=== PATIENT | male | born 1950 | race Caucasian/White ===

== ENCOUNTER → 2017-10-21 10:45 | Outpatient (REF) | payer OTHER, SELFPAY ==
[2017-10-21 13:40] LABS: Cholesterol 157 mg/dL (50-200); Glucose 93 mg/dL (70-100); HDL Cholesterol 44 mg/dL (40-60); LDL CHOLESTEROL 99 mg/dL (<100); Triglyceride 111 mg/dL (30-150)
[2017-10-24 09:58] LABS: PSA, Screening 3.5 ng/ml (0-4.5)
== END ==
LOC: NCHCN 10:45
PROVIDERS: PCP Nurse Practitioner; Visit Provider Nurse Practitioner
DX: Z00.00 Encounter for general adult medical examination without abnormal findings (principal); E78.70 Disorder of bile acid and cholesterol metabolism, unspecified; Z12.5 Encounter for screening for malignant neoplasm of prostate
CPT/HCPCS: 80061; 82947; 83721; 84153

== ENCOUNTER 2018-01-20 14:07 | Outpatient (REF) | payer OTHER, SELFPAY ==
[2018-01-20 21:43] LABS: HCT 46.5 % (40.0-50.0); HGB 15.7 g/dL (13.5-17.5); Mean Corp. HGB Concentration 33.8 g/dL (32.0-36.0); Mean Corpuscular Hemoglobin 31.9 pg (27.0-33.0); Mean Corpuscular Volume 94.5 fL (80-95); Mean Platelet Volume 11.6 fL (8.0-11.0); Platelet Count 280 x1000/uL (130-400); RBC 4.92 m/cumm (4.50-6.00); RBC Distribution Width 13.2 % (11.8-14.1); White Blood Cell Count 7.81 k/cumm (4.4-10.8)
[2018-01-20 22:24] LABS: Bilirubin Negative (Negative); Blood Trace-lysed (Negative); Clarity Clear; Glucose Negative (Negative); Ketones Negative (Negative); Leukocyte Esterase Negative (Negative); Nitrite Negative (Negative); Specific Gravity 1.015 (1.005-1.025); Urobilinogen 0.2 EU/dL (Up TO 0.2); pH 6.5 (5-8)
[2018-01-20 22:32] LABS: Bacteria Negative HPF (Negative); C-Reactive Protein 0.33 mg/dL (0.0-0.3); Epithelial Cells Many HPF (Negative); RBC Negative (0-2); WBC 0-2 HPF (0-5)
[2018-01-20 22:33] LABS: ALT 26 U/L (12-78); AST 25 U/L (15-37); Albumin 3.8 g/dL (3.4-5.0); Alkaline Phosphatase 76 U/L (46-116); Anion Gap 10.1 mmol/L (3-11); BUN 20 mg/dL (7-18); Bilirubin, Total 0.4 mg/dL (0.2-1.0); C & S Indicated? No/Sq. Contamination; CO2 24.9 mmol/L (21.0-32.0); CREATININE 0.94 mg/dL (0.70-1.30); Calcium 9.1 mg/dL (8.5-10.1); Casts Negative LPF (Negative); Chloride 102 mmol/L (98-107); Cholesterol 209 mg/dL (50-200); Crystals Few Calcium Oxalate HPF (Negative); Glucose 98 mg/dL (70-100); HDL Cholesterol 57 mg/dL (40-60); LDL CHOLESTEROL 144 mg/dL (<100); Mucus Negative (Negative); Potassium 4.2 mmol/L (3.5-5.1); Sodium 137 mmol/L (136-145); Total Protein 6.7 g/dL (6.4-8.2); Triglyceride 68 mg/dL (30-150)
[2018-01-20 22:34] LABS: ESR 9 MM/HR (1-20)
[2018-01-23 10:16] LABS: Hepatitis C Ab w Rflx HCV PCR Negative (NEGAT)
[2018-01-23 13:51] LABS: ANA Interpretation Negative (NEGAT)
[2018-01-24 12:36] LABS: Albumin 61.3 % (55.8-66.1); Total Protein 6.5 g/dl (6.3-8.2)
== END 2018-01-20 14:27 ==
LOC: NCHCN 14:07
PROVIDERS: PCP Nurse Practitioner; Visit Provider Internal Medicine
DX: T69.1XXD Chilblains, subsequent encounter (principal); Z11.59 Encounter for screening for other viral diseases
CPT/HCPCS: 80053; 80061; 83721; 85027; 85652; 86803; 81003; 81015; 84165; 86038; 86140; 86160

== ENCOUNTER 2018-09-26 12:06 | Outpatient (REF) | payer OTHER, SELFPAY ==
[2018-09-26 22:23] LABS: ALT 23 U/L (12-78); AST 18 U/L (15-37); Albumin 3.8 g/dL (3.4-5.0); Alkaline Phosphatase 85 U/L (46-116); Anion Gap 9.4 mmol/L (3-11); BUN 19 mg/dL (7-18); Bilirubin, Total 0.5 mg/dL (0.2-1.0); CO2 28.6 mmol/L (21.0-32.0); CREATININE 0.92 mg/dL (0.70-1.30); Calculated LDL 151 mg/dL; Chloride 105 mmol/L (98-107); Cholesterol 218 mg/dL (50-200); Glucose 92 mg/dL (70-100); HDL Cholesterol 51 mg/dL (40-60); Potassium 4.6 mmol/L (3.5-5.1); Sodium 143 mmol/L (136-145); Total Protein 6.7 g/dL (6.4-8.2); Triglyceride 81 mg/dL (30-150)
== END 2018-09-26 12:26 ==
LOC: NCHCN 12:06
PROVIDERS: PCP Nurse Practitioner; Visit Provider Specialist/Technologist Athletic Trainer
DX: R73.01 Impaired fasting glucose (principal); R23.8 Other skin changes; E78.89 Other lipoprotein metabolism disorders
CPT/HCPCS: 80053; 80061; 83721; 83036

== ENCOUNTER → 2018-12-14 09:22 | Outpatient (BNVA) | payer OTHER, SELFPAY | PROVIDERS: PCP Specialist/Technologist Athletic Trainer; Visit Provider Physical Therapy Assistant | DX: Z12.11 Encounter for screening for malignant neoplasm of colon (principal); Z86.010 Personal history of colon polyps; J44.9 Chronic obstructive pulmonary disease, unspecified; F17.210 Nicotine dependence, cigarettes, uncomplicated ==

== ENCOUNTER 2018-12-22 08:47 | Day surgery (SDC) | payer OTHER, SELFPAY ==
[2018-12-22 09:08] VITALS: BP 107/67; PULSE 89; RESP 16; TEMP 36; O2SAT 99
[2018-12-22] MEDS: Lactated Ringers 1,000 ML 80 ML IV (09:19)
--- NOTE | 2018-12-22 10:20 | W.PM.DSUDISC ---
Discharge Plan Disposition Patient Disposition: HOME Condition: Good Discharge Details Reason For Visit: Colonoscopy Attending Provider: Brooke Reaves Primary Care Provider: Steve Paul Home Meds and New Rx's Prescriptions: Continued ibuprofen 800 mg tablet 800 mg PO BID PRNRF: 0 sildenafil [Viagra] 50 mg tablet 50 mg PO DAILY PRNRF: 0 citalopram 20 mg tablet 20 mg PO DAILY RF: 0 sennosides [Senokot] 8.6 mg tablet 17.2 mg PO DAILY RF: 0 cholecalciferol (vitamin D3) 1,000 UNIT capsule 1,000 unit PO DAILY RF: 0 Symbicort 10.2 GM HFA aerosol inhaler 2 puff Inhalation BID RF: 0 Discharge Instructions Additional Instructions: Findings: Three polyps were removed. My office will contact you with biopsy results. Follow up: Plan for a colonoscopy in 3 years Please call if you develop: fevers >101.5 Nausea or Vomiting Abdominal pain that is not transient DAY SURGERY UNIT POST COLONOSCOPY INSTRUCTIONS 1. Because there will be medication in your system for the next 24 hours, you may feel a little sleepy. Your coordination will be affected. Therefore: a. Do not drive or operate dangerous equipment for 24 hours. b. Do not drink alcohol beverages for 24 hours (not even beer). c. Plan to go home and rest for the day. 2. Generally there are no restrictions on your activity after a day or so has gone by, but you may feel a bit fatigued for a few days. 3 After you arrive home you may have a light meal and return to a normal diet as you can tolerate it without feeling sick to your stomach. 4. After surgery, you may feel pain or discomfort. This should be only transient, but if it persists please contact your doctor. 5. If there are any questions regarding the findings of your procedure, please feel free to contact your doctor. 6. If you are unable to contact your doctor with a problem, contact the hospital at [phone]. 7. Continue all your regular medications unless directed otherwise. I understand the above instructions and have no questions. Signature of Patient or Responsible Adult Escort Date/Time Name of Responsible Adult Escort Signature of Nurse Date/Time Activity:: Activity as Tolerated Diet:: As Tolerated Discharge Orders Discharge Orders: Discharge Order (Routine); Ordered 12/22/18 Ordered By: Brooke Reaves DS: Diagnosis Discharge Diagnosis (1) Colon polyps: Status: Acute
--- NOTE | 2018-12-22 10:54 | BOWEL_PTH ---
PATIENT: Clement Nelson LOC: [facility] U#:[id number] AGE/SX: 68/M ROOM: RE12/22/[address]: Brooke Reaves MD : 1950 BED: DIS: 12/22/2018 SPEC #: [id number] RECD: 12/22/18 12:39 STATUS: BEN REQ #: [id number] CHANDU: 12/22/18 10:[address]: Brooke Reaves DEPT: Surgical Specimen RECD BY: Anayeli Escobar ENTERED: 12/22/18 12:41 SP TYPE: Bowel OTHR DR: Steve Paul Tissues: 1 - BIOPSY BOWEL 2 - BIOPSY BOWEL Procedures: GROSS AND MICRO LEVEL 4 Comments: [id number]
[2018-12-22 11:50] VITALS: BP 107/67; PULSE 62; RESP 16; TEMP 35.9; O2SAT 100
--- NOTE | 2018-12-25 10:15 | COLE_ITS ---
DATE OF PROCEDURE: December 22, 2018 PREOPERATIVE DIAGNOSIS: History of colon polyps. POSTOPERATIVE DIAGNOSIS: Colon polyps. PROCEDURE: Colonoscopy with polypectomy. SURGEON: Brooke Reaves M.D. ANESTHESIA: General. INDICATIONS: This is a 68-year-old man whose prior colonoscopy in 2009 showed polyps. He has no fam rene history of colon cancer and is asymptomatic. PROCEDURE: The patient was placed in the left Aviles position. Propofol was titrated to sedation. Di gital rectal examination revealed no abnormalities. The scope was advanced to the cecum without diff iculty. The ileocecal valve and appendiceal orifice were clearly identified. The scope was slowly w ithdrawn with no abnormalities seen within the ascending or transverse colons. In the descending the re was a slightly larger than 1 cm polyp that was removed with snare polypectomy and retrieved for pa thology. In the sigmoid region there was a larger polyp on a stalk. This was removed with snare danis ypectomy at the mid-portion of the stalk and needed to be dragged out with the scope to retrieve for pathology. A hemostatic clip was applied to the base of the stalk with good result. There had been good hemostasis and this was applied as a preventative measure. Of note, there had also been an sandro cent small polyp that was removed with snare polypectomy but not retrieved because the tissue was tan troyed during the process due to cautery effect. The rectum was normal, including on retroflex view. He tolerated the procedure well and was stable to recovery. A follow-up will be dependent on the p athology, but it is anticipated to be needed within three years. cc: Libertad Mena
== END 2018-12-22 12:25 | disposition home or self-care (01) ==
PROVIDERS: PCP Specialist/Technologist Athletic Trainer; Visit Provider Surgery
PROC: 0DJD8ZZ Inspection of Lower Intestinal Tract, Via Natural or Artificial Opening Endoscopic (ICD-10-PCS; CPT 45378; principal; 2018-12-22 10:30)
DX: Z12.11 Encounter for screening for malignant neoplasm of colon (principal); D12.4 Benign neoplasm of descending colon; D12.5 Benign neoplasm of sigmoid colon; Z86.010 Personal history of colon polyps; Z87.19 Personal history of other diseases of the digestive system; J44.9 Chronic obstructive pulmonary disease, unspecified
CPT/HCPCS: 45385; 88305

== ENCOUNTER 2019-02-13 12:57 | Outpatient (REF) | payer OTHER, SELFPAY ==
[2019-02-16 11:45] LABS: Lyme Ab w Rflx to Lyme Confirm Negative (Negative)
[2019-02-16 16:57] LABS: Anaplasma phagocytophilum Negative (Negative); B. miyamotoi PCR Negative (Negative); Babesia divergens/MO-1 Negative (Negative); Babesia duncani Negative (Negative); Babesia microti Negative (Negative); Ehrlichia chaffeensis Negative (Negative); Ehrlichia ewingii/canis Negative (Negative); Ehrlichia muris eauclairensis Negative (Negative)
== END 2019-02-13 13:17 ==
LOC: NCHCN 12:57
PROVIDERS: PCP Specialist/Technologist Athletic Trainer; Visit Provider Specialist/Technologist Athletic Trainer
DX: M79.10 Myalgia, unspecified site (principal)
CPT/HCPCS: 87798; 86618

== ENCOUNTER 2020-01-24 13:59 | Outpatient (REF) | payer OTHER, SELFPAY ==
[2020-01-24 21:07] LABS: Bilirubin Negative (Negative); Blood Small (Negative); Clarity Clear (Clear); Glucose Negative (Negative); Ketones Negative (Negative); Leukocyte Esterase Negative (Negative); Nitrite Negative (Negative); Specific Gravity 1.025 (1.005-1.025); Urobilinogen 0.2 EU/dL (Up TO 0.2)
[2020-01-24 21:14] LABS: Epithelial Cells Few HPF (Negative); RBC 0-2 HPF (0-2); WBC 0-2 HPF (0-5)
[2020-01-24 21:15] LABS: Bacteria Rare HPF (Negative); C & S Indicated? No; Casts Negative LPF (Negative); Crystals Negative HPF (Negative); Mucus Negative (Negative); Other Cells Few Transitional (Negative)
[2020-01-24 21:27] LABS: HCT 48.9 % (40.0-50.0); HGB 16.6 g/dL (13.5-17.5); MCH 31.7 pg (27.0-33.0); MCHC 33.9 % (32.0-36.0); MCV 93.5 fL (80-95); MPV 10.6 fL (8.0-11.0); Platelet Count 324 10^3/uL (130-400); RBC 5.23 10^6/uL (4.36-5.78); RDW 12.7 % (11.8-14.1); RDW-SD 43.6 fL; WBC 9.48 10^3/uL (4.4-10.8)
[2020-01-24 21:50] LABS: ALT 21 U/L (16-63); AST 21 U/L (15-37); Anion Gap 8.2 mmol/L (3-11); BUN 17 mg/dL (7-18); CO2 24.8 mmol/L (21.0-32.0); Calcium 8.5 mg/dL (8.5-10.1); Calculated LDL 169 mg/dL (<100); Chloride 106 mmol/L (98-107); Cholesterol 235 mg/dL (<200); Glucose 100 mg/dL (74-106); HDL Cholesterol 46 mg/dL (40-60); Potassium 4.5 mmol/L (3.5-5.1); Sodium 139 mmol/L (136-145); Triglyceride 101 mg/dL (<150)
[2020-01-24 22:10] LABS: Hemoglobin A1C 5.8 % (<5.7)
[2020-01-29 13:22] LABS: PSA, Screening 3.5 ng/mL (0-6.5)
== END 2020-01-24 14:19 ==
LOC: NCHCN 13:59
PROVIDERS: PCP Specialist/Technologist Athletic Trainer; Visit Provider Nurse Practitioner Family
DX: R31.9 Hematuria, unspecified (principal); Z00.00 Encounter for general adult medical examination without abnormal findings; R73.03 Prediabetes; Z12.5 Encounter for screening for malignant neoplasm of prostate; E78.70 Disorder of bile acid and cholesterol metabolism, unspecified
CPT/HCPCS: 80048; 80061; 84153; 85027; 81003; 81015; 83036; 84450; 84460

== ENCOUNTER 2021-01-28 15:13 | Outpatient (REF) | payer MEDICARE, OTHER, SELFPAY ==
[2021-01-28 21:29] LABS: Clarity Clear (Clear)
[2021-01-28 21:30] LABS: Bilirubin Negative (Negative); Blood Moderate (Negative); Glucose Negative (Negative); Ketones Negative (Negative); Leukocyte Esterase Negative (Negative); Nitrite Negative (Negative); Specific Gravity >= 1.030 (1.005-1.025); Urobilinogen 0.2 EU/dL (Up TO 0.2); WBC Negative HPF (0-5); pH 6.5 (5-8)
[2021-01-28 21:31] LABS: Bacteria Rare HPF (Negative); C & S Indicated? No; Casts Negative LPF (Negative); Crystals Negative HPF (Negative); Epithelial Cells Few HPF (Negative); Mucus Negative (Negative)
[2021-01-28 21:37] LABS: HCT 48.5 % (40.0-50.0); HGB 15.9 g/dL (13.5-17.5); MCH 30.4 pg (27.0-33.0); MCHC 32.8 % (32.0-36.0); MCV 92.7 fL (80-95); MPV 10.8 fL (8.0-11.0); Platelet Count 331 10^3/uL (130-400); RBC 5.23 10^6/uL (4.36-5.78); RDW 13.2 % (11.8-14.1); RDW-SD 44.7 fL; WBC 10.41 10^3/uL (4.4-10.8)
[2021-01-29 00:44] LABS: Hemoglobin A1C 6.2 % (<5.7)
[2021-01-29 08:21] LABS: Calcium 8.9 mg/dL (8.5-10.1)
[2021-01-29 08:22] LABS: ALT 27 U/L (16-63); AST 24 U/L (15-37); Anion Gap 12.3 mmol/L (3-11); BUN 17 mg/dL (7-18); CO2 24.7 mmol/L (21.0-32.0); Calculated LDL 117 mg/dL (<100); Chloride 104 mmol/L (98-107); Cholesterol 185 mg/dL (<200); Glucose 81 mg/dL (74-106); HDL Cholesterol 50 mg/dL (40-60); Potassium 4.4 mmol/L (3.5-5.1); Sodium 141 mmol/L (136-145); Triglyceride 92 mg/dL (<150)
[2021-01-29 18:28] LABS: PSA, Diagnostic 6.1 ng/mL (0.0-6.5)
== END 2021-01-28 15:14 | disposition home or self-care (01) ==
LOC: NCHCN 15:13
PROVIDERS: PCP Nurse Practitioner Family; Visit Provider Nurse Practitioner Family
DX: R31.9 Hematuria, unspecified (principal); E78.00 Pure hypercholesterolemia, unspecified; R03.0 Elevated blood-pressure reading, without diagnosis of hypertension; R73.03 Prediabetes; Z12.5 Encounter for screening for malignant neoplasm of prostate
CPT/HCPCS: 80048; 80061; 85027; 81003; 81015; 83036; 84153; 84450; 84460

== ENCOUNTER 2021-02-26 02:15 | Outpatient (CLI) | payer MEDICARE, OTHER, SELFPAY ==
--- NOTE | 2021-02-26 | DI.CTLCSR_ITS ---
Exam(s) CT CHEST LUNG CANCER SCREEN EXAM: CT CHEST LUNG CANCER SCREEN CLINICAL HISTORY: CIGARETTE SMOKER F17.210,screening for lung ca. TECHNIQUE: Imaging Protocol: Low Dose Technique CONTRAST MATERIAL: None COMPARISON: No exams were available for comparison FINDINGS: CHEST: LUNGS: In the right lung there is a tiny 1 millimeter nodule located laterally in the right upper lob e (series 2/image 45). There is a subpleural tiny 2 millimeter nodule in the anterior segment of the right upper lobe (series 2/image 53). There is a 6 millimeter nodule at the junction of the right u pper and right middle lobes (series 2/image 83) which is probably a pseudo nodule, given its location . There is a 5 millimeter nodular density in the right middle lobe (series 2/image 101). There are no significant focal findings in the basal segments of the right lower lobe. There is a 6 millimeter nodule in the superior segment of the right lower lobe which has the appearance of a granuloma. No pleural effusion. In the opposite-left lung there is an 11 by 8 millimeter nodular density subpleural location left low er lobe (series 2/image 71). There are no other significant focal left lung findings. No pleural ef fusion. No significant focal findings in the trachea and mainstem bronchi. MEDIASTINUM: There is no obvious hilar nor mediastinal adenopathy. CARDIAC: Heart size is normal. There is no pericardial effusion.Caliber of the thoracic aorta is wit hin normal limits. OTHER: OSSEOUS: No significant osseous lesions.. IMPRESSION: 1. Bilateral lung findings as described above. The most significant finding is a subpleural 11 x 8 m illimeter nodular density in the left lower lobe. Recommend repeat CT scan in 3 months. 2. No pleural effusions. No intrathoracic adenopathy. 3. Lung RADS Cat 4A - Suspicious: Findings for which additional diagnostic testing and/or [facility] recommended Lung-RADS 1.0 CATEGORIES: Category 0 - Prior chest CT exam(s) being located for comparison. Category 1 - Annual screening in 12 months. No nodules or definitely benign nodules. Category 2 - Annual screening in 12 months. Benign appearance. Nodules with low likelihood of becomin g active cancer. Category 3 - 6-month follow-up. Probably benign. Short-term follow-up suggested. Nodules with low lik elihood of becoming active cancer. Category 4A - 3-month follow-up and CT/PET if >8 mm in size. Suspicious finding. Findings which requi re additional testing. Category 4B - Findings which require additional testing and tissue sampling. Modifier S- Potentially clinically significant findings (non lung cancer) RADIATION DOSE DELIVERED: 85.1mGy.cm Total DLP 1.84mGy CTDIvol DATA REPOSITORY: All CT scans at this facility are submitted to the National Radiology Data Registry (NRDR) Dose Index Registry (DIR) with the [employer] (ACR). RADIATION OPTIMIZATION: All CT scans at this facility use at least one of these dose optimization te chniques: automated exposure control; mA and/or kV adjustment per patient size (includes targeted exa ms where dose is matched to clinical indication); or iterative reconstruction.
== END 2021-02-26 02:35 ==
PROVIDERS: PCP Nurse Practitioner Family; Visit Provider Nurse Practitioner Family
DX: Z12.2 Encounter for screening for malignant neoplasm of respiratory organs (principal); F17.210 Nicotine dependence, cigarettes, uncomplicated; R91.8 Other nonspecific abnormal finding of lung field
CPT/HCPCS: 71271

== ENCOUNTER 2021-11-26 10:02 | Outpatient (REF) | payer MEDICARE, OTHER, SELFPAY ==
[2021-11-28 12:09] LABS: COVID-19 RT-PCR UVMMC Result Negative (Negative)
== END 2021-11-26 10:03 | disposition home or self-care (01) ==
LOC: NCHCN 10:02
PROVIDERS: PCP Nurse Practitioner Family; Visit Provider Nurse Practitioner Family
DX: U07.1 COVID-19 (principal)
CPT/HCPCS: U0003

== ENCOUNTER → 2021-12-14 02:02 | Outpatient (CLI) | payer MEDICARE, OTHER, SELFPAY ==
--- NOTE | 2021-12-14 12:30 | DI.RAD_ITS ---
Exam(s) XR HIP PELVIS ADULT BL EXAM: XR HIP PELVIS ADULT BL CLINICAL HISTORY: HIP PAIN, M25.559. TECHNIQUE: 2D digital imaging was performed. Three views. COMPARISON: No exams were available for comparison FINDINGS: BONES: No acute fracture is present. No bony destructive lesion is seen. JOINTS: No dislocation present. Mild bilateral acetabular spurring. Mild degenerative changes at the SI joints. SOFT TISSUE: Normal. IMPRESSION: Mild degenerative changes. DATA REPOSITORY: RADIATION DOSE DELIVERED:
== END ==
PROVIDERS: PCP Nurse Practitioner Family; Visit Provider Nurse Practitioner Family
DX: M16.0 Bilateral primary osteoarthritis of hip (principal)
CPT/HCPCS: 73521

== ENCOUNTER → 2021-12-30 01:45 | Outpatient (CLI) | payer MEDICARE, OTHER, SELFPAY ==
--- NOTE | 2021-12-30 14:30 | DI.CT_ITS ---
Exam(s) CT CHEST WO EXAM: CT CHEST WO CLINICAL HISTORY: PULMONARY NODULE, R91.1 TECHNIQUE: CT examination of the chest was performed utilizing low-dose lung cancer screening protoc . COMPARISON: CT CT CHEST LUNG CANCER SCREEN from 02/26/2021 FINDINGS: Images obtained through the upper abdomen show unremarkable appearance of visualized portions of the liver and spleen. Note is made of an 18 millimeter in diameter right adrenal nodule, this shows att enuation around 0 Hounsfield units consistent with an adenoma. No follow-up recommended. There is no mediastinal or hilar adenopathy. Mediastinal vascular structures appear intact by noncon trast criteria. Tracheobronchial tree appears intact. No pleural effusion or pleural-based mass. There were pulmonary nodules seen on examination of February 2021. The largest of these was a subple ural left lower lobe nodule measuring 10 millimeters mean diameter, this is no longer visible. A 6 m illimeter right lower lobe nodule is the largest remaining nodule and remains stable since the prior examination. No other suspicious findings or new nodularity seen. IMPRESSION: Lung RADS Cat 2 - Benign Appearance / Behavior: Nodules with a very low likelihood of becoming a clin ically active cancer due to size or lack of growth Continue annual screening with LDCT in 12 months. Lung-RADS 1.0 CATEGORIES: Category 0 - Prior chest CT exam(s) being located for comparison. Category 1 - Annual screening in 12 months. No nodules or definitely benign nodules. Category 2 - Annual screening in 12 months. Benign appearance. Nodules with low likelihood of becomin g active cancer. Category 3 - 6-month follow-up. Probably benign. Short-term follow-up suggested. Nodules with low lik elihood of becoming active cancer. Category 4A - 3-month follow-up and CT/PET if >8 mm in size. Suspicious finding. Findings which requi re additional testing. Category 4B - Findings which require additional testing and tissue sampling. Suspicious finding. Category 4X - Category 3 or 4 nodules with additional features or imaging findings that increases the suspicion of malignancy. Modifier S- Potentially clinically significant finding. (Non lung cancer) RADIATION DOSE DELIVERED: Total DLP CTDIvol Total DLP !Error CTDIvol DATA REPOSITORY: All CT scans at this facility are submitted to the National Radiology Data Registry (NRDR) Dose Index Registry (DIR) with the [employer] (ACR). RADIATION OPTIMIZATION: All CT scans at this facility use at least one of these dose optimization te chniques: automated exposure control; mA and/or kV adjustment per patient size (includes targeted exa ms where dose is matched to clinical indication); or iterative reconstruction.
== END ==
PROVIDERS: PCP Nurse Practitioner Family; Visit Provider Nurse Practitioner Family
DX: R91.1 Solitary pulmonary nodule (principal)
CPT/HCPCS: 71250

== ENCOUNTER 2022-02-22 15:14 | Outpatient (REF) | payer MEDICARE, OTHER, SELFPAY ==
[2022-02-22 15:03] LABS: Calculated LDL 184 mg/dL (<100); Cholesterol 252 mg/dL (<200); HDL Cholesterol 49 mg/dL (40-60); Triglyceride 97 mg/dL (<150)
[2022-02-22 15:42] LABS: Hemoglobin A1C 5.9 % (<5.7)
[2022-02-24 09:42] LABS: DHEA Sulfate 86 ug/dL (See Note)
== END 2022-02-22 15:15 | disposition home or self-care (01) ==
LOC: NCHCN 15:14
PROVIDERS: PCP Nurse Practitioner Family; Visit Provider Internal Medicine
DX: E78.70 Disorder of bile acid and cholesterol metabolism, unspecified (principal); R73.03 Prediabetes; I10 Essential (primary) hypertension; M79.671 Pain in right foot
CPT/HCPCS: 80061; 82627; 82088; 83036

== ENCOUNTER 2022-08-17 15:09 | Outpatient (REF) | payer MEDICARE, OTHER, SELFPAY ==
[2022-08-17 22:00] LABS: HCT 48.1 % (40.0-50.0); HGB 16.3 g/dL (13.5-17.5); MCH 31.7 pg (27.0-33.0); MCHC 33.9 % (32.0-36.0); MCV 94 fL (80-95); MPV 10.6 fL (8.0-11.0); Platelet Count 319 10^3/uL (130-400); RBC 5.14 10^6/uL (4.36-5.78); RDW 13.6 % (11.8-14.1); RDW-SD 47.6 fL; WBC 8.85 10^3/uL (4.4-10.8)
[2022-08-18 00:04] LABS: ALT 21 U/L (16-63); AST 21 U/L (15-37); Albumin 3.7 g/dL (3.4-5.0); Alkaline Phosphatase 79 U/L (46-116); Anion Gap 8.6 mmol/L (3-11); BUN 17 mg/dL (7-18); Bilirubin, Total 0.5 mg/dL (0.2-1.0); CO2 26.4 mmol/L (21.0-32.0); CREATININE 0.9 mg/dL (0.70-1.30); Calcium 8.8 mg/dL (8.5-10.1); Chloride 104 mmol/L (98-107); Estimated GFR 90.74 (mL/min/1.73m2); Glucose 92 mg/dL (74-106); Potassium 4.6 mmol/L (3.5-5.1); Sodium 139 mmol/L (136-145); Total Protein 6.9 g/dL (6.4-8.2)
[2022-08-18 18:29] LABS: PSA, Screening 6.9 ng/mL (<=6.5)
== END 2022-08-17 15:10 | disposition home or self-care (01) ==
LOC: NCHCN 15:09
PROVIDERS: PCP Nurse Practitioner Family; Visit Provider Nurse Practitioner Family
DX: I10 Essential (primary) hypertension (principal); R73.03 Prediabetes; N40.0 Benign prostatic hyperplasia without lower urinary tract symptoms; Z12.5 Encounter for screening for malignant neoplasm of prostate; E78.00 Pure hypercholesterolemia, unspecified
CPT/HCPCS: 80053; 84153; 85027

== ENCOUNTER 2022-09-17 00:22 | Outpatient (CLI) | payer MEDICARE, OTHER, SELFPAY ==
[2022-09-17] MEDS: Normal Saline - Diluent 50 ML VIAL IJ (09:33)
[2022-09-17] MEDS: Normal Saline Flush 10 ML SYR IJ (09:33)
--- NOTE | 2022-09-17 09:33 | DI.CTLCSR_ITS ---
Exam(s) CT CHEST LUNG CANCER SCREEN EXAM: CT CHEST LUNG CANCER SCREEN CLINICAL HISTORY: CIGARETTE SMOKER, F17.210 TECHNIQUE: Imaging Protocol: Axial computed tomography images with coronal and sagittal reformatted images were created and reviewed. Low dose screening protocol. COMPARISON: CT CT CHEST LUNG CANCER SCREEN from 02/26/[address] CHEST WO from 12/30/2021 FINDINGS: Tracheobronchial tree: No bronchiectasis or mucus plugging.. Mediastinum and Eliz: No dominant adenopathy or fluid collection. Pulmonary parenchyma: No consolidation or dominant measurable mass. Mild emphysematous changes. Bleb right lung apex. Interstitial changes. Lung Nodules: 6 millimeter calcified granuloma right lower lobe. Two tiny perifissural nodules on th e right. Pleura: No effusion. No pneumothorax. Heart: The heart is not dilated. Mild coronary artery calcifications are seen. Aorta: Thoracic aorta non-dilated. Upper abdomen: Unremarkable. Bones: Degenerative disc changes and mild scoliosis. Soft Tissues: Stable small low-attenuation right adrenal adenoma. No follow-up recommended. IMPRESSION: No suspicious pulmonary nodules. Lung RADS Cat 2 - Benign Appearance / Behavior: Nodules with a very low likelihood of becoming a clin ically active cancer due to size or lack of growth Lung-RADS 1.0 CATEGORIES: Category 0 - Prior chest CT exam(s) being located for comparison. Category 1 - Annual screening in 12 months. No nodules or definitely benign nodules. Category 2 - Annual screening in 12 months. Benign appearance. Nodules with low likelihood of becomin g active cancer. Category 3 - 6-month follow-up. Probably benign. Short-term follow-up suggested. Nodules with low lik elihood of becoming active cancer. Category 4A - 3-month follow-up and CT/PET if >8 mm in size. Suspicious finding. Findings which requi re additional testing. Category 4B - Findings which require additional testing and tissue sampling. Category 4X - Category 3 or 4 nodules with additional features or imaging findings that increases the suspicion of malignancy. Modifier S- Potentially clinically significant findings (non lung cancer) RADIATION DOSE DELIVERED: 85.1mGy.cm Total DLP DATA REPOSITORY: All CT scans at this facility are submitted to the National Radiology Data Registry (NRDR) Dose Index Registry (DIR) with the [employer] (ACR). RADIATION OPTIMIZATION: All CT scans at this facility use at least one of these dose optimization te ritu: automated exposure control; mA and/or kV adjustment per patient size (includes targeted exa ms where dose is matched to clinical indication); or iterative reconstruction.
[2022-09-17] MEDS: Omnipaque 350 MG/ML 500 ML BTL-Imaging package 100 ML IJ (09:34)
--- NOTE | 2022-09-17 09:48 | DI.CT_ITS ---
Exam(s) CT ABDOMEN WO/W EXAM: CT ABDOMEN WO/W CLINICAL HISTORY: ADRENAL NODULE, E27.8. TECHNIQUE: Imaging Protocol: Axial computed tomography images with coronal and sagittal reformatted images were created and reviewed CONTRAST MATERIAL: Intravenous: Omnipaque 350 Contrast volume:structured data in ml Contrast route:I V - Oral: no COMPARISON: CT CT CHEST LUNG CANCER SCREEN from 02/26/[address] CHEST WO from 12/30/2021 FINDINGS: ABDOMEN: Lung Bases: Normal where visualized. Liver: Normal density. No measurable mass. Gallbladder and biliary tract: No radiodense calculus or dilation. Pancreas: Normal density, no abnormal calcifications or inflammatory process. Spleen: Normal. Kidneys: Normal size, contour and axis. No radiodense stones or obstructive uropathy. No masses seen. Adrenal glands: Stable appearance of 18 millimeter water density right adrenal nodule since 2020. Ho mogeneous mild enhancement with washout characteristics consistent with an adenoma. No follow-up is recommended. Abdominal Aorta: Abdominal portion non-dilated. Atherosclerotic changes. Lymph nodes: Within normal limits. Bones: Degenerative changes. IMPRESSION: Stable small right adrenal nodule with appearance consistent with an adenoma. No follow-up recommen ded. RADIATION DOSE DELIVERED: 1,449.79mGy.cm Total DLP DATA REPOSITORY: All CT scans at this facility are submitted to the National Radiology Data Registry (NRDR) Dose Index Registry (DIR) with the [employer] (ACR). RADIATION OPTIMIZATION: All CT scans at this facility use at least one of these dose optimization te chniques: automated exposure control; mA and/or kV adjustment per patient size (includes targeted exa ms where dose is matched to clinical indication); or iterative reconstruction.
== END 2022-09-17 00:42 ==
LOC: DI 00:22
PROVIDERS: PCP Nurse Practitioner Family; Visit Provider Nurse Practitioner Family
DX: F17.210 Nicotine dependence, cigarettes, uncomplicated (principal); Z13.820 Encounter for screening for osteoporosis; E27.8 Other specified disorders of adrenal gland
CPT/HCPCS: 71271; 74170

== ENCOUNTER → 2022-09-23 11:33 | Outpatient (BNVA) | payer MEDICARE, OTHER, SELFPAY | PROVIDERS: PCP Nurse Practitioner Family; Referring Provider Nurse Practitioner Family; Visit Provider Physical Therapy Assistant | DX: Z12.11 Encounter for screening for malignant neoplasm of colon (principal); Z86.010 Personal history of colon polyps ==

== ENCOUNTER 2022-10-07 10:12 | Day surgery (SDC) | payer MEDICARE, OTHER, SELFPAY ==
--- NOTE | 2022-10-06 19:03 | W.PM.DSUDISC ---
Date of service: 10/07/22 Time of Service: 11:43 Discharge Plan Disposition Patient Disposition: Home Condition: Good Discharge Details Reason For Visit: Screening colonoscopy Attending Provider: Franky Abraham Primary Care Provider: Juany Amaya Home Meds and New Rx's Prescriptions: Continued ibuprofen 800 mg tablet 800 mg PO BID PRN celecoxib [Celebrex] 200 mg capsule 200 mg PO BID Patient Comments: no longer taking this medication multivitamin Tablet 1 tab PO DAILY Patient Comments: pt states he no longer takes this acetaminophen 500 mg capsule See Rx Instructions PO .COMPLEX PRN Rx Instructions: orally PRN; 1-2 tabs Q8hrs prn pain. MAX 6 tabs daily. sildenafil [Viagra] 50 mg tablet 50 mg PO DAILY PRN clotrimazole-betamethasone 1-0.05 % cream 1 applic topical BID budesonide-formoterol [Symbicort] 10.2 GM HFA aerosol inhaler 2 puff Inhalation BID Discontinued bisacodyl [Dulcolax (bisacodyl)] 5 mg tablet,delayed release (DR/EC) 5 mg PO ONCE Qty: 4 0RF Rx Instructions: Take per colonoscopy instructions provided by ordering providers office polyethylene glycol 3350 17 gram/dose powder 17 g PO ONCE Qty: 238 0RF Rx Instructions: Take per colonoscopy instructions provided by ordering providers office Discharge Instructions Additional Instructions: Miles, we were able to complete your colonoscopy today without any difficulty. The quality of your preparation was excellent. I did find 3 small polyps in your rectum. I removed these completely. I will be in touch when I have the pathology report describing the nature of the polyps with my final recommendations. 1. If tolerated, consume a soft, low fiber diet for 1-2 days. 2[address] Do not drive, drink alcohol, operate machinery, make critical decisions, or do activities that require coordination or balance for 24 hours. 3. Because air was put into your colon during the procedure, expelling air from your rectum (passing gas or farting) is normal. 4. You may not have a bowel movement for 1-3 days because of the colonoscopy prep. This is normal. 5. Go directly to the emergency room if you notice any of the following: Develop chills (warm to touch), or if you have a thermometer and your temperature is above 101 Difficulty breathing or difficultly swallowing Persistent vomiting Severe abdominal pain, other than gas cramps Severe chest pain Black, tarry stools Any bleeding ? exceeding one tablespoon 6. Call your physician if the site where your intravenous was started becomes red, swollen, painful, and warm to touch. 7. Your physician has reviewed your pre-procedure medications. Please continue to take those medications as previously ordered. You will be given specific information/education regarding any changes to your medications before leaving. Activity:: Activity as Tolerated Diet:: As Tolerated Discharge Orders Discharge Orders: Discharge Order (Routine); Ordered 10/06/22 Ordered By: Franky Abraham DS: Diagnosis Discharge Diagnosis (1) Screening for colon cancer: Status: Acute Asessment and Plan: Rectal polyps; follow-up on pathology results
--- NOTE | 2022-10-06 19:27 | W.COLOREPORT ---
Date of service: 10/07/22 Time of Service: 11:45 Colonoscopy Report Date of procedure: 10/07/22 Pre-op diagnosis general: Screening colonoscopy Post-op diagnosis procedure note: other (Rectal polyps) Procedure: Colonoscopy with polypectomy Surgeon: Franky Abraham Anesthesia Type: General:No Airway Estimated blood loss (mL): 10 Pathology: other (Rectal polyps) Complications: None Disposition: same day Indications: Clement is a 72 year old male with a history of adenomatous polyps. he is here for his next screening colonoscopy Prep: Miralax/Dulcolax Procedure Start Time: 11:08 Procedure End Time: 11:25 Retraction Time: 13 Findings: Rectal polyps Procedure Description: After the induction of monitored anesthetic care, and with the patient in left lateral decubitus position, I began by performing an external anorectal exam.? Perineum and skin were normal, as was the anal verge.? There was no evidence of external hemorrhoids.? Next, I performed a digital rectal exam.? I did not appreciate any abnormal findings.? Next, I advanced a colonoscope into the rectal vault.? I performed retroflexion.? In the distal rectum are 3 small polyps. The largest was less than 0.5 cm. I removed these all with cold forceps polypectomy. There was minimal bleeding..? Using insufflation, I then advanced the colonoscope beyond the rectal folds and into the sigmoid colon before advancing towards the cecum.? The quality of the prep was excellent.? The scope was noted to be in the cecum by identification of the ileocecal valve and appendiceal orifice.? I then began withdrawing the colonoscope using repeated irrigation as necessary for full evaluation of the colonic mucosa. ?Once the scope was withdrawn to the level of the rectum, great care was taken to examine portions of the rectal folds.? Finally, the scope was withdrawn and the patient was brought to the same-day surgery recovery unit as the anesthetic wore off. ?The findings and instructions were shared with the patient prior to discharge.
--- NOTE | 2022-10-07 10:33 | W.ANESPRE ---
General Info Date of Service Date Performed: 10/07/22 Height: 5 ft 8 in Weight: 86.636 kg Body Mass Index (BMI): 29.0 Surgical Procedure: Operation Date: 10/07/22 10:35 Proposed Procedure Side Surgeon cristobal Abraham MD Meds Allergies and Home Medications Allergies Allergy/AdvReac Type Severity Reaction Status Date / Time No Known Allergies Allergy Verified 10/07/22 10:35 Home Medication Medication Instructions Recorded budesonide-formoterol HFA 160 2 puff inhalation BID 10/25/17 mcg-4.5 mcg/actuation aerosol inhaler (Symbicort) ibuprofen 800 mg tablet 800 mg PO BID PRN 01/23/18 sildenafil 50 mg tablet (Viagra) 50 mg PO DAILY PRN 10/10/18 clotrimazole-betamethasone 1 1 applic topical BID 12/10/20 %-0.05 % topical cream acetaminophen 500 mg capsule See Rx Instructions PO .COMPLEX PRN 12/20/21 celecoxib 200 mg capsule (Celebrex) 200 mg PO BID 12/20/21 multivitamin 1 tab PO DAILY 12/20/21 Current Visit Medications: Current Medications Generic Name Dose Route Start Last Admin Trade Name Freq PRN Reason Stop Dose Admin Hyoscyamine Sulfate 0.125 mg 10/06/22 19:28 Hyoscyamine 0.125 Mg Sl/Oral/Chew SL 11/05/22 19:27 DIRECTED PRN Ringer's Solution 1,000 mls @ 80 mls/hr 10/07/22 06:00 IV 11/05/22 23:59 INFUSION [facility] IV Miscellaneous Supplies 1 each 10/07/22 06:00 Iv Access IV 11/05/22 23:59 DIRECTED [facility] Ondansetron HCl 4 mg 10/06/22 19:28 Ondansetron 4 Mg/2 Ml Vial IVP 11/05/22 19:27 Q4H PRN PRN Nausea / Vomiting Sodium Chloride 0 ml 10/07/22 06:00 Normal Saline Flush 10 Ml Syr IV 11/05/22 23:59 PRN PRN Sodium Chloride 0 ml 10/07/22 06:00 Normal Saline 10 Ml Vial IJ 11/05/22 23:59 DIRECTED PRN Sterile Water 0 ml 10/07/22 06:00 Water,Injection,Sterile 10 Ml Vial IJ 11/05/22 23:59 DIRECTED PRN PFSH Active Problems Active Problems: Problem Status Onset Code Screening for colon cancer Z12.11 Myalgia M79.10 Bruit R09.89 Pulmonary nodule R91.1 Abscess of toe, right L02.611 Adrenal nodule E27.8 Pain, foot M79.673 Corns and callosities L84 Nail dystrophy L60.3 Throat discomfort R07.0 Tongue, fissured K14.5 Globus sensation R09.89 Tongue lesion K14.8 Colon polyps K63.5 Anxiety and depression F41.9, F32.9 Chilblains T69.1XXA Cervical lymphadenopathy R59.0 BPH (benign prostatic hyperplasia) N40.0 Medical History Medical History Chronic back pain COPD (chronic obstructive pulmonary disease) [place] of toe Easy bruising Elevated blood pressure reading in office without diagnosis of hypertension Foot callus Hematuria Hematuria, microscopic High cholesterol Hip pain Hx of kidney disease Impaired fasting glucose Prediabetes Smoker Surgical History Surgical History History of arthroscopic knee surgery History of thumb surgery partial left thumb amputation S/P colonoscopy with polypectomy 12/22/18 Tobacco Smoking/Tobacco Use Status: Current every day Tobacco Type: cigarettes Alcohol Alcohol Intake: current Alcohol intake frequency: a few times a week Alcohol type: beer Substance Use Substance use: Daily Substance use type: marijuana Details: Vapes. Vital Signs and Lab Results Vital Signs Comment Vital Signs Comment:: Temp Pulse Resp BP Pulse Ox 36.4 C L 91 H 16 158/93 H 98 10/07/22 10:38 10/07/22 10:38 10/07/22 10:38 10/07/22 10:38 10/07/22 10:38 Lab Results Blood Type / Crossmatch: No Data to Display Complete Blood Count: No Data to Display Complete Metabolic Panel: No Data to Display Liver Function Panel: No Data to Display Coagulation Panel: No Data to Display Cardiac Panel: No Data to Display Arterial Blood Gas: No Data to Display Venous Blood Gas: No Data to Display Pancreas Panel: No Data to Display Thyroid Panel: No Data to Display Infectious Disease: No Data to Display Blood Cultures: No Data to Display Toxicology Panel: No Data to Display Anesthesia Assessment and Plan Anesthesia History Personal History: No History of Anesthesia Complications Family History: No Family History of Anesthesia Complications Exercise Tolerance Exercise Tolerance: Metabolic Equivalents>4 Pertinent Negatives Pertinent Negatives: No Symptoms of GERD and No Major Cardiovascular Symptoms or Complaints Cardiac & Pulmonary Exam Cardiac Exam: Normal S1/S2 Heart Sounds Pulmonary Exam: Clear Bilateral Breath Sounds Implantable Cardiac Device Does patient have a Pacemaker or an ICD?: No Airway Exam Known Difficult Airway: No Mallampati Class: 1 Mouth Opening: Normal (> 3cm) Thyromental Distance: Greater than 3 cm Neck Range of Motion: Full ROM Neck Circumference: Normal Teeth Condition: Normal Dentition ASA Classification ASA Score: ASA 2 Emergency Case?: No NPO Status NPO Status: NPO Clears >2 hours, Solids >8 hours Anesthesia Plan Resuscitation Status: Full Code Anesthesia Technique: General Anesthesia Airway Planned: Natural Airway Monitors Used: Standard Monitors
[2022-10-07 10:35] VITALS: BMI 29.0
[2022-10-07 10:38] VITALS: BP 158/93; PULSE 91; RESP 16; TEMP 36.4; O2SAT 98
[2022-10-07] MEDS: Lactated Ringers 1,000 ML 80 ML IV (10:40)
--- NOTE | 2022-10-07 11:10 | BOWEL_PTH ---
PATIENT: Clement Nelson LOC: [facility] U#:[id number] AGE/SX: 72/M ROOM: RE10/07/[address]: Franky Abraham MD : 1950 BED: DIS: 10/07/2022 SPEC #: [id number] RECD: 10/07/22 12:09 STATUS: BEN REQ #: [id number] CHANDU: 10/07/22 11:[address]: Franky Abraham DEPT: Surgical Specimen RECD BY: Anayeli Escobar ENTERED: 10/07/22 12:10 SP TYPE: Bowel OTHR DR: Juany Amaya Tissues: 1 - BIOPSY BOWEL Procedures: GROSS AND MICRO LEVEL 4 Comments: [id number]
[2022-10-07 11:29] VITALS: BP 109/66; PULSE 85; RESP 16; TEMP 36.2; O2SAT 95
[2022-10-07 11:49] VITALS: BP 126/76; PULSE 73; RESP 16; TEMP 36.2; O2SAT 98
--- NOTE | 2022-10-07 12:27 | W.ANESPOSTOP ---
Postoperative Evaluation Date, Time and Location Date Performed: 10/07/22 Time Performed: 11:40 Patient Location: Day Surgery Unit Vital Signs Most Recent Imported Vital Signs: Most Recent Vital Signs Temp Pulse Resp BP Pulse Ox 36.2 C L 85 16 109/66 95 10/07/22 11:29 10/07/22 11:29 10/07/22 11:29 10/07/22 11:29 10/07/22 11:29 Assessment Mental Status: Awake (Alert & Oriented to Patient Baseline) Airway and Respiratory Function: Patent airway with normal (patient baseline) respiratory exam Cardiovascular Function: Hemodynamically Stable Hydration Status: Adequately Hydrated Nausea & Vomiting: No Nausea or Vomiting Pain: Pt. Denies Any Pain Peripheral Nerve Block: Patient did not receive a nerve block
== END 2022-10-07 12:30 | disposition home or self-care (01) ==
LOC: SUR 10:12
PROVIDERS: PCP Nurse Practitioner Family; Visit Provider Surgery
PROC: 0DJD8ZZ Inspection of Lower Intestinal Tract, Via Natural or Artificial Opening Endoscopic (ICD-10-PCS; CPT 45378; principal; 2022-10-07 10:30)
DX: Z12.11 Encounter for screening for malignant neoplasm of colon (principal); K62.1 Rectal polyp; Z86.010 Personal history of colon polyps; J44.9 Chronic obstructive pulmonary disease, unspecified; E78.00 Pure hypercholesterolemia, unspecified; R73.03 Prediabetes
CPT/HCPCS: 45380; 88305

== ENCOUNTER 2023-02-15 18:46 | Outpatient (REF) | payer MEDICARE, OTHER, SELFPAY ==
[2023-02-16 20:16] LABS: PSA, Diagnostic 6.7 ng/mL (<=6.5)
== END 2023-02-15 18:47 | disposition home or self-care (01) ==
LOC: NCHCN 18:46
PROVIDERS: PCP Nurse Practitioner Family; Visit Provider Nurse Practitioner Family
DX: R97.20 Elevated prostate specific antigen [PSA] (principal)
CPT/HCPCS: 84153

== ENCOUNTER → 2023-03-17 12:54 | Outpatient (BNVA) | payer MEDICARE, OTHER, SELFPAY | PROVIDERS: PCP Nurse Practitioner Family; Referring Provider Nurse Practitioner Family; Visit Provider Nurse Practitioner Gerontology | DX: N40.1 Benign prostatic hyperplasia with lower urinary tract symptoms (principal); R35.0 Frequency of micturition; R31.29 Other microscopic hematuria; R97.20 Elevated prostate specific antigen [PSA] | CPT/HCPCS: 51798; 81003; 99215 ==

== ENCOUNTER → 2023-03-24 10:35 | Outpatient (BNVA) | payer MEDICARE, OTHER, SELFPAY | PROVIDERS: PCP Nurse Practitioner Family; Referring Provider Nurse Practitioner Family; Visit Provider Nurse Practitioner Gerontology | DX: N40.1 Benign prostatic hyperplasia with lower urinary tract symptoms (principal); R33.8 Other retention of urine | CPT/HCPCS: 99442 ==

== ENCOUNTER → 2023-08-02 04:07 | Outpatient (CLI) | payer MEDICARE, OTHER, SELFPAY ==
--- NOTE | 2023-08-02 07:45 | DI.CT_ITS ---
Exam(s) CT ABDOMEN PELVIS WO/W EXAM: CT ABDOMEN PELVIS WO/W CLINICAL HISTORY: hematuria,r31.9. TECHNIQUE: Imaging Protocol: Axial computed tomography images with coronal and sagittal reformatted images were created and reviewed CONTRAST MATERIAL: Intravenous: Omnipaque-350 100cc Oral: None COMPARISON: CT CT ABDOMEN WO/W from 09/17/2022 FINDINGS: VISUALIZED LUNG BASES: No nodules nor pleural effusions evident. ABDOMEN: There is no ascites. LIVER: There are no focal hepatic lesions evident. No dilated intrahepatic ducts. GALLBLADDER/BILIARY: Subtle mural density at the tip of the fundus of the gallbladder noted which is either a small calculus or small polyp. There is no gallbladder wall thickening nor pericholecystic fluid. CBD is not dilated. PANCREAS: No evidence of pancreatic mass nor dilatation of the pancreatic duct. SPLEEN: Spleen is not enlarged. No obvious intrasplenic lesions. Splenic and portal veins are paten t. ADRENALS: The previously described hypodense nodule in the right adrenal gland is again noted, measur ing 2.1 by 1.3 cm, similar to previous and probably an adenoma. The left adrenal gland remains unrem arkable. KIDNEYS:Left kidney unremarkable. Benign cyst in the lateral cortex of the right kidney is again not ed which measures 1.2 cm and does not require follow-up. No solid renal masses. No calculi nor hydr onephrosis.. There are no consistent filling defects in the nondilated renal pelves. There is a sin gle ureter on each side. Course and caliber of both ureters is normal. ABDOMINAL AORTA: Moderate atherosclerotic involvement. No significant aneurysm. LYMPH NODES:There is no retroperitoneal nor paraaortic adenopathy. ABDOMINAL WALL: No evidence of significant anterior abdominal wall nor inguinal hernia. GI: There is no evidence of bowel obstruction, free air, nor abscess. PELVIS: GI: No evidence of appendicitis.No evidence of sigmoid diverticulitis. LYMPH NODES: There is no intrapelvic nor inguinal adenopathy. REPRODUCTIVE: Moderate prostate enlargement. Prostate with is 5.5 cm. URINARY BLADDER: There is diffuse abnormal thickening of the urinary bladder wall. Measures approxim ately 6 mm. No calculi in the bladder lumen seen. OSSEOUS: No fractures and no significant osseous lesions. Mild degenerative anterolisthesis of L4 upon L5 noted. IMPRESSION: 1. Solitary benign 1.2 cm cortical cyst in the right kidney, unchanged from 09/17/2022. No other foc al renal findings. No calculi nor solid renal masses evident on either side. Unremarkable appearing ureters. 2. Diffuse abnormal thickening of the urinary bladder noted which is either due to chronic cystitis a nd/or element of outlet obstruction in this patient with enlarged prostate. 3. Stable hypodense nodule in the right adrenal gland measuring 2.1 x 1.3 cm, probably an adenoma. T he opposite-left adrenal gland is unremarkable. RADIATION DOSE DELIVERED: 2,987.66mGy.cm Total DLP DATA REPOSITORY: All CT scans at this facility are submitted to the National Radiology Data Registry (NRDR) Dose Index Registry (DIR) with the [employer] (ACR). RADIATION OPTIMIZATION: All CT scans at this facility use at least one of these dose optimization te chniques: automated exposure control; mA and/or kV adjustment per patient size (includes targeted exa ms where dose is matched to clinical indication); or iterative reconstruction.
[2023-08-02 12:50] LABS: Estimated GFR 79.47 (mL/min/1.73m2)
[2023-08-02] MEDS: Normal Saline - Diluent 50 ML VIAL IJ ×2 (13:17→13:18)
[2023-08-02] MEDS: Omnipaque 350 MG/ML 500 ML BTL-Imaging package IJ (13:17)
== END ==
PROVIDERS: PCP Nurse Practitioner Family; Visit Provider Nurse Practitioner Gerontology
DX: N28.1 Cyst of kidney, acquired (principal)
CPT/HCPCS: 36415; 74178; 82565

== ENCOUNTER → 2023-09-30 09:10 | Outpatient (BNVA) | payer MEDICARE, OTHER, SELFPAY | PROVIDERS: PCP Nurse Practitioner Family; Referring Provider Nurse Practitioner Family; Visit Provider Urology | DX: R31.29 Other microscopic hematuria (principal); R97.20 Elevated prostate specific antigen [PSA] | CPT/HCPCS: 52000; 81003 ==

== ENCOUNTER → 2023-10-05 02:18 | Outpatient (CLI) | payer MEDICARE, OTHER, SELFPAY ==
--- OUTSIDE RECORDS SUMMARY | 2023-10-05 02:20 | XMS_ITS | Encounter Summary ---
Author Organization [facility] Address [address] [place] [address] Care Team Providers Care Electronics Processor Name Role Phone Unknown, Provider Primary Care Provider Encounter Details Date Type Department Care Team (Late st Contact Info) Description 02/13/2020 Lab Requisition [place] Pathology & Laboratory Medicine - [facility] [address] [place] [address] Outr Resulting Lab, Provider Social History Tobacco Use Types Packs/Day Years Used Date Smoking Tobacco: Never Assessed Interpersonal Safety Answer Date Record ed Physically Hurt Never 10/22/2019 Verbally Threaten Not on file 10/22/2019 Sex and Gender Information Value Date Recorded Sex Assigned at Not on file Gender Identity Not on file Sexual Orientation Not on file documented as of this encounter Plan of Treatment Not on file documented as of this encounter Procedures Procedure Name Priority Date/Time Associated Diagnosis Comments PSA TOTAL, DIAGNOSTIC After X-Ray 01/24/2020 12:09 EST documented in this encounter Results * PSA TOTAL, DIAGNOSTIC (01/24/2020 12:09 EST) PSA 3.5 0.0 - 6.5 ng/mL 03/13/2020 14:29 EST [facility] Blood VENOUS BLOOD / Unknown 01/24/2020 12:09 EST 03/12/2020 8:33 EST Narrative [facility] - 03/13/2020 14:29 EST NOTE: Serum PSA concentration should not be interpreted as absolute evidence for the presence or absence of malignant disease. Assayed on Siemens [employer]VIA [employer] XPT using chemiluminescent technology.??Values obtained by using different assay methods cannot be used interchangeably. Provider Outr Resulting Lab CHEMISTRY & BLOOD GAS ORDERABLES [facility] [address] [place] [address] documented in this encounter Visit Diagnoses Not on filedocumented in this encounter Care Teams Electronics Processor Relationship Specialty Start Date End Date Unknown, Provider, PCP - General 12/22/18 documented as of this encounter
--- OUTSIDE RECORDS SUMMARY | 2023-10-05 02:20 | XMS_ITS | Encounter Summary ---
Author Organization [facility] Address [address] [place] [address] Care Team Providers Care Lot Associate Name Role Phone Unknown, Provider Primary Care Provider Encounter Details Date Type Department Care Team (Late st Contact Info) Description 2022 Lab Requisition [facility] Pathology & Laboratory Medicine - [facility] [place] [address] [place] [address] Outr Resulting Lab, Provider Social History Tobacco [...] Date/Time Associated Diagnosis Comments PSA TOTAL, DIAGNOSTIC Routine 08/17/2022 14:50 EDT documented in this encounter Results * (ABNORMAL) PSA TOTAL, DIAGNOSTIC (08/17/2022 14:50 EDT) PSA 6.9(H) <=6.5 ng/mL 2022 18:24 EDT [facility] Blood VENOUS BLOOD / Unknown 08/17/2022 14:50 EDT 2022 17:12 EDT Narrative [facility] - 2022 18:24 EDT NOTE: Serum PSA concentration should not be interpreted as absolute evidence for the presence or absence of malignant disease. Assayed on Siemens ADVIA [employer]aur XPT using chemiluminescent technology.??Values obtained by using different assay methods cannot be used interchangeably. Provider Outr Resulting Lab CHEMISTRY & BLOOD GAS ORDERABLES [facility] [address] [place] [id number] documented in this encounter Visit Diagnoses Not on filedocumented in this encounter Care Teams Lot Associate Relationship Specialty Start Date End Date Unknown, Provider, PCP - General 12/22/18 documented as of this encounter
--- OUTSIDE RECORDS SUMMARY | 2023-10-05 02:20 | XMS_ITS | Encounter Summary ---
Author Organization [facility] Address [address] [place] [address] Care Team Providers Care Tar Heater Operator Name Role Phone Unknown, Provider Primary Care Provider Encounter Details Date Type Department Care Team (Late st Contact Info) Description 12/22/2018 Results Only [facility] [phone] Debi Reaves MD [address] [place], [place] [phone] Social History Tobacco Use Types Packs/Day Years Used Date Smoking Tobacco: Never Assessed Sex and Gender Information Value Date Recorded Sex Assigned at Not on file Gender Identity Not on file Sexual Orientation Not on file documented as of this encounter Plan of Treatment Not on file documented as of this encounter Procedures Procedure Name Priority Date/Time Associated Diagnosis Comments SURGICAL PATHOLOGY Routine 12/22/2018 15 :49 EDT documented in this encounter Results * SURGICAL PATHOLOGY (12/22/2018 15:49 EDT) Pathology Report: SURGICAL PATHOLOGY REPORT Reports generated via electronic interface contain original data; however they are lacking the format of the original report. Caution should be taken when reading/interpret ing unformatted reports. Name: ? CLEMENT NELSON ? Accession #: ? [id number] ? : ? 1950 (Age: 68) ??M ? Collect Date: ? 12/22/2018 ? Location: ? [facility] ? Receive Date: ? 12/22/2018 ? Provider: DEBI REAVES MD Copy to: JOSE WARD PAC ? Final Pathologic Diagnosis: A. COLON, DESCENDING, POLYP, BIOPSY: - Tubular adenoma. B. COLON, SIGMOID, POLYP, BIOPSY: - Tubulovillous adenoma. Document reviewed and electronically signed by: BOBY BERNABE MD Report ??Date: 12/26/2018 12:12 By the signature above, the attending physician certifies that he/she has personally conducted a gross and/or microscopic examination of the described specimens and rendered or confirmed the above diagnosis. Specimen(s) Received: A. ??Descending colon polyp B. ??Sigmoid polyp Clinical History: Screening Gross Description: A. ?Received in formalin labelled with proper patient identification (initials P, M) and descending colon polyp are two pink-victoria polypoid tissues (0.6 x 0.5 x 0.3 cm and 0.4 x 0.3 x 0.1 cm). The margins of the larger piece are inked blue and the margins of the smaller piece are inked black, the larger piece is bisected and entirely submitted in A1, and the smaller piece is entirely submitted in A1. B. ?Received in formalin labelled with proper patient identification (initials P, M) and sigmoid polyp is a single pink-red polypoid tissue (1.2 x 1.0 x 0.5 cm). The margin is inked blue, the specimen is sectioned and entirely submitted in B1 and B2. DENIS Shields (ASCP) 12/22/2018 6:13 PM End of Report [facility] 12/22/2018 15:4 9 EDT 12/22/2018 15:49 EDT Debi Reaves MD PATHOLOGY ORDERABLES [facility] [address] [place] [address] documented in this encounter Visit Diagnoses Not on filedocumented in this encounter Care Teams Tar Heater Operator Relationship Specialty Start Date End Date Unknown, Provider, PCP - General 12/22/18 documented as of this encounter
--- OUTSIDE RECORDS SUMMARY | 2023-10-05 02:20 | XMS_ITS | Encounter Summary ---
Author Organization [facility] Address [address] [place] [address] Care Team Providers Care Swing Saw Operator Name Role Phone Unknown, Provider Primary Care Provider Encounter Details Date Type Department Care Team (Latest Contact Info) Description 12/22/2018 10:24 EDT - 12/22/2018 23:59 EDT Hospital Encounter [address] [address] Unknown, ProviderMD Discharge Disposition: Home or Self Care Social History Tobacco Use Types Packs/Day Years Used Date Smoking Tobacco: Never Assessed Sex and Gender Information Value Date Recorded Sex Assigned at Not on file Gender Identity Not on file Sexual Orientation Not on file documented as of this encounter Discharge Disposition Disposition Code Departure Means Destination Home or Self [facility] documented in this encounter Plan of Treatment Not on file documented as of this encounter Visit Diagnoses Not on filedocumented in this encounter Care Teams Swing Saw Operator Relationship Specialty Start Date End Date Unknown, ProviderMD PCP - General 12/22/18 documented as of this encounter
--- OUTSIDE RECORDS SUMMARY | 2023-10-05 02:20 | XMS_ITS | Encounter Summary ---
Author Organization [facility] Address [address] [place] [address] Care Team Providers Care Bowling Pin Setters Installer Name Role Phone Unknown, Provider Primary Care Provider Encounter Details Date Type Department Care Team (Late st Contact Info) Description 01/29/2021 Lab Requisition [facility] Pathology & Laboratory Medicine - [facility] [address] [place] [address] Outr Resulting Lab, Provider Social History Tobacco [...] Associated Diagnosis Comments PSA TOTAL, DIAGNOSTIC Routine 01/28/2021 14:35 EST documented in this encounter Results * PSA TOTAL, DIAGNOSTIC (01/28/2021 14:35 EST) PSA 6.1 0.0 - 6.5 ng/mL 01/29/2021 18:23 EST [facility] Blood VENOUS BLOOD / Unknown 01/28/2021 14:35 EST 01/29/2021 17:25 EST Narrative [facility] - 01/29/2021 18:23 EST NOTE: Serum PSA concentration should not be interpreted as absolute evidence for the presence or absence of malignant disease. Assayed on Siemens ADVIA [employer]ime [employer] XPT using chemiluminescent technology.??Values obtained by using different assay methods cannot be used interchangeably. Provider Outr Resulting Lab CHEMISTRY & BLOOD GAS ORDERABLES [facility] [address] [place] [address] documented in this encounter Visit Diagnoses Not on filedocumented in this encounter Care Teams Bowling Pin Setters Installer Relationship Specialty Start Date End Date Unknown, Provider, PCP - General 12/22/18 documented as of this encounter
--- OUTSIDE RECORDS SUMMARY | 2023-10-05 02:20 | XMS_ITS | Clinical Summary ---
Author Organization [facility] Address [address] [place] [address] Care Team Providers Care Coal Mill Operator Name Role Phone Unknown, Provider Primary Care Provider Social History Tobacco Use Types Packs/Day Years Used Date Smoking Tobacco: Never Assessed Interpersonal Safety Answer Date Record ed Physically Hurt Never 10/22/2019 Verbally Threaten Not on file 10/22/2019 Sex and Gender Information Value Date Recorded Sex Assigned at Not on file Gender Identity Not on file Sexual Orientation Not on file Plan of Treatment Health Maintenance Due Date Last Done Comments Hepatitis C Screen 1950 RSV Immunization ( o r 60+ Years) (1 - 1-dose 60+ series) 2009 Fall Risk Screening 2014 COVID-19 Vaccine (2022-24 season) 2022 Care Teams Coal Mill Operator Relationship Specialty Start Date End Date Unknown, Provider, PCP - General 12/22/18
--- OUTSIDE RECORDS SUMMARY | 2023-10-05 02:20 | XMS_ITS | Encounter Summary ---
Author Organization [facility] Address [address] [place] [address] Care Team Providers Care Tuna Purse Seiner Name Role Phone Unknown, Provider Primary Care Provider [phone] Encounter Details Date Type Department Care Team (Late st Contact Info) Description 02/14/2019 Lab Requisition [facility] Pathology & Laboratory Medicine - [facility] [address] [place] [address] Unknown, ProviderMD Social History Tobacco Use Types Packs/Day Years Used Date Smoking Tobacco: Never Assessed Sex and Gender Information Value Date Recorded Sex Assigned at Not on file Gender Identity Not on file Sexual Orientation Not on file documented as of this encounter Plan of Treatment Not on file documented as of this encounter Procedures Procedure Name Priority Date/Time Associated Diagnosis Comments LYME AB Routine 02/13/2019 12:18 EST documented in this encounter Results * LYME AB (02/13/2019 12:18 EST) Lyme Ab Negative Negative 02/16/2019 11:41 EST [facility] Blood VENOUS BLOOD / Unknown 02/13/2019 12:18 EST 02/14/2019 16:08 EST Provider Unknown IMMUNOLOGY AND SEROL OGY ORDERABLES [facility] [address] [place] [address] documented in this encounter Visit Diagnoses Not on filedocumented in this encounter Care Teams Tuna Purse Seiner Relationship Specialty Start Date End Date Unknown, Provider, PCP - General 12/22/18 documented as of this encounter
--- OUTSIDE RECORDS SUMMARY | 2023-10-05 02:20 | XMS_ITS | Encounter Summary ---
Author Organization [facility] Address [address] [place] [address] Care Team Providers Care Auto Emissions Technician Name Role Phone Unknown, Provider Primary Care Provider Encounter Details Date Type Department Care Team (Late st Contact Info) Description 10/07/2022 Lab Requisition [facility] Pathology & Laboratory Medicine - [facility] [place] [address] [place] [address] Franky Abraham MD [address] [place] [address], [address] [place], [place] [id number] Encounter for screening for malignant neoplasm of colon Social History Tobacco Use Types Packs/Day Years [...] Priority Date/Time Associated Diagnosis Comments SURGICAL PATHOLOGY Today 10/07/2022 11 :10 EDT Encounter for screening for malignant neoplasm of colon documented in this encounter Results * SURGICAL PATHOLOGY (10/07/2022 11:10 EDT) Note to Patient The following pathology results have been interpreted by your pathologist and may be available to you before your health provider has had the opportunity to review them. Please allow time for your provider to receive these results and explore management options, if applicable. 10/12/2022 9:16 EDT [facility] Final Diagnosis A. RECTUM, POLYPS, BIOPSY: - Hyperplastic polyps. 10/12/2022 9:16 [facility] Attestation There was significant resident/fellow involvement in the diagnostic evaluation of this case. By the signature below, the attending physician certifies that they have personally conducted a gross and/or microscopic examination of the described specimens and rendered or confirmed the above diagnosis. 10/12/2022 9:16 [facility] at 0916 Clinical History Rectal polyps 10/12/2022 9:16 T [facility] Gross Description A. Received in formalin labelled with proper patient identification (initials P, M) and rectal polyps are 3 victoria-brown tissues (0.3 x 0.1 x 0.1 cm to 0.5 x 0.4 x 0.2 cm). Entirely submitted in A1. DENIS FLANNERY(ASCP) 10/08/2022 8:51 10/12/2022 9:16 T [facility] Resident/Emmanuel w: Ketty Garcia DO 10/12/2022 9:16 [facility] Performing Lab [facility] 10/12/2022 9:16 [facility] Scanned Images 10/12/2022 9:16 [facility] Tissue SPECIMEN FROM RECTUM / Unknown 10/07/2022 11:10 EDT 10/07/2022 18:13 EDT Franyk Abraham MD PATHOLOGY ORDERABLES [facility] [address] [place] [address] documented in this encounter Visit Diagnoses Diagnosis Encounter for screening for malignant neoplasm of colon Special screening for malignant neoplasms, colon documented in this encounter Care Teams Auto Emissions Technician Relationship Specialty Start Date End Date Unknown, Provider, PCP - General 12/22/18 documented as of this encounter
--- OUTSIDE RECORDS SUMMARY | 2023-10-05 02:20 | XMS_ITS | Encounter Summary ---
Author Organization [facility] Address [address] [place] [address] Care Team Providers Care Morgue Keeper Name Role Phone Unknown, Provider Primary Care Provider [phone] Encounter Details Date Type Department Care Team (Late st Contact Info) Description 11/27/2021 Lab Requisition [facility] Pathology & Laboratory Medicine - [address] [address] Outr Resulting Lab, Provider Social History Tobacco [...] Procedure Name Priority Date/Time Associated Diagnosis Comments ZZCOVID-19 TEST [facility] PCR Today 11/26/2021 9:52 EDT COVID-19 TESTING Routine 11/26/2021 9:52 EDT documented in this encounter Results * COVID-19 TEST [facility] PCR (11/26/2021 9:52 EDT) Swab 11/26/2021 9:52 EDT 11/27/2021 21:31 EDT Provider Outr Resulting Lab MICROBIOLOGY - GENERAL ORDERABLES [facility] [address] [place] [address] * COVID-19 TESTING (11/26/2021 9:52 EDT) COVID-19 rt-PCR Result Negative Negative 11/28/2021 12:04 EDT [facility] Comment: This test has not been FDA cleared or approved. This test has been authorized by FDA under an EUA for use by authorized laboratories. This test has been authorized only for detection of nucleic acid from 2019-nCoV, not for any other viruses or pathogens. This test is only authorized for the duration of the declaration that circumstances exist justifying the authorization of emergency use of in vitro diagnostic tests for detection and/or diagnosis of 2019-nCoV under section 564(b)(1) of Act, 21 U.S.C ?? 360bbb-3(b) (1), unless the authorization is terminated or revoked sooner. Negative results do not preclude 2019-nCoV infection and should not be used as the sole basis for treatment or other patient management decisions. Negative results must be combined with clinical observations, patient history, and epidemiological information. Testing was performed using the juliano SARS-CoV-2 assay ([employer] on the Juliano 6800 System Performing Lab Juliano [address] [facility] 11/28/2021 12:04 EDT [facility] Swab 11/26/2021 9:52 EDT 11/27/2021 21:31 EDT Provider Outr Resulting Lab MICROBIOLOGY - GENERAL ORDERABLES [facility] [address] [place] [address] documented in this encounter Visit Diagnoses Not on filedocumented in this encounter Care Teams Morgue Keeper Relationship Specialty Start Date End Date Unknown, Provider, PCP - General 12/22/18 documented as of this encounter
--- OUTSIDE RECORDS SUMMARY | 2023-10-05 02:20 | XMS_ITS | Encounter Summary ---
Author Organization [facility] Address [address] [place] [address] Care Team Providers Care Group Insurance Special Agent Name Role Phone Unknown, Provider Primary Care Provider [phone] Encounter Details Date Type Department Care Team (Late st Contact Info) Description 02/16/2023 Lab Requisition [facility] Pathology & Laboratory Medicine - [facility] [address] [place] [address] Outr Resulting Lab, Provider Social History Tobacco [...] Associated Diagnosis Comments PSA TOTAL, DIAGNOSTIC Routine 02/15/2023 14:00 EST documented in this encounter Results * (ABNORMAL) PSA TOTAL, DIAGNOSTIC (02/15/2023 14:00 EST) PSA 6.7(H) <=6.5 ng/mL 02/16/2023 20:10 EST [facility] Blood VENOUS BLOOD / Unknown 02/15/2023 14:00 EST 02/16/2023 17:28 EST Narrative [facility] - 02/16/2023 20:10 EST NOTE: Serum PSA concentration should not be interpreted as absolute evidence for the presence or absence of malignant disease. Assayed on Siemens ADVIA Centaur XPT using chemiluminescent technology.??Values obtained by using different assay methods cannot be used interchangeably. Provider Outr Resulting Lab CHEMISTRY & BLOOD GAS ORDERABLES [facility] [address] [place] [id number] documented in this encounter Visit Diagnoses Not on filedocumented in this encounter Care Teams Group Insurance Special Agent Relationship Specialty Start Date End Date Unknown, Provider, PCP - General 12/22/18 documented as of this encounter
--- OUTSIDE RECORDS SUMMARY | 2023-10-05 02:20 | XMS_ITS | Encounter Summary ---
Author Organization [facility] Address [address] [place] [address] Care Team Providers Care Cart Attendant Name Role Phone Unknown, Provider Primary Care Provider Encounter Details Date Type Department Care Team (Late st Contact Info) Description 02/22/2022 Lab Requisition [facility] Pathology & Laboratory Medicine - [address] [address] Outr Resulting Lab, Provider Social History Tobacco [...] Procedure Name Priority Date/Time Associated Diagnosis Comments DHEA SULFATE Routine 02/22/2022 10:25 EST documented in this encounter Results * DHEA SULFATE (02/22/2022 10:25 EST) DHEA Sulfate 86 See Note ug/dL 02/24/2022 9:[address] [facility] Comment: NOTE: Reference ranges have not been established for this age demographic. Blood VENOUS BLOOD / Unknown 02/22/2022 10:25 EST 02/22/2022 21:46 EST Provider Outr Resulting Lab CHEMISTRY & BLOOD GAS ORDERABLES [facility] [address] [place] [address] documented in this encounter Visit Diagnoses Not on filedocumented in this encounter Care Teams Cart Attendant Relationship Specialty Start Date End Date Unknown, Provider, PCP - General 12/22/18 documented as of this encounter
--- OUTSIDE RECORDS SUMMARY | 2023-10-05 02:20 | XMS_ITS | Referral Summary ---
Author Organization [facility] Address [address] [place] [address] Care Team Providers Care Buffing Wheel Presser Name Role Phone Unknown, Provider Primary Care Provider Social History Tobacco Use Types Packs/Day Years Used Date Smoking Tobacco: Never Assessed Interpersonal Safety Answer Date Record ed Physically Hurt Never 10/22/2019 Verbally Threaten Not on file 10/22/2019 Sex and Gender Information Value Date Recorded Sex Assigned at Not on file Gender Identity Not on file Sexual Orientation Not on file Plan of Treatment Not on file Care Teams Buffing Wheel Presser Relationship Specialty Start Date End Date Unknown, Provider, PCP - General 12/22/18
--- NOTE | 2023-10-05 11:00 | DI.CTLCSR_ITS ---
Exam(s) CT CHEST LUNG CANCER SCREEN EXAM: CT CHEST LUNG CANCER SCREEN CLINICAL HISTORY: Tobacco dependence on cigarettes, F17.210. TECHNIQUE: Imaging Protocol: Low Dose Technique CONTRAST MATERIAL: None COMPARISON: CT CT CHEST WO from 12/30/[address] CHEST LUNG CANCER SCREEN from 09/17/[address] ABDOMEN PELVIS WO/W from 08/02/2023 FINDINGS: CHEST: LUNGS: There is an unchanged calcified granuloma in the superior segment of the right lower lobe. Al so other tiny calcified granulomas bilaterally. Small unchanged perifissural nodule on the right claudia e is again noted.. No new left lung nodules. No confluent infiltrates and no pleural effusions. No pleural effusions. MEDIASTINUM: There is no obvious hilar nor mediastinal adenopathy. CARDIAC: Heart size is normal. There is no pericardial effusion.Caliber of the thoracic aorta is wit hin normal limits. OTHER: OSSEOUS: No fractures. No significant osseous lesions.. IMPRESSION: 1. Stable benign-appearing findings, unchanged from CT scan of 09/17/2022. 2. No new suspicious lung nodules. 3. Lung RADS Cat 2 - Benign Appearance / Behavior: Nodules with a very low likelihood of becoming a c linically active cancer due to size or lack of growth Lung-RADS 1.0 CATEGORIES: Category 0 - Prior chest CT exam(s) being located for comparison. Category 1 - Annual screening in 12 months. No nodules or definitely benign nodules. Category 2 - Annual screening in 12 months. Benign appearance. Nodules with low likelihood of becomin g active cancer. Category 3 - 6-month follow-up. Probably benign. Short-term follow-up suggested. Nodules with low lik elihood of becoming active cancer. Category 4A - 3-month follow-up and CT/PET if >8 mm in size. Suspicious finding. Findings which requi re additional testing. Category 4B - Findings which require additional testing and tissue sampling. Category 4X - Category 3 or 4 nodules with additional features or imaging findings that increases the suspicion of malignancy. Modifier S- Potentially clinically significant findings (non lung cancer) RADIATION DOSE DELIVERED: Total DLP DATA REPOSITORY: All CT scans at this facility are submitted to the National Radiology Data Registry (NRDR) Dose Index Registry (DIR) with the [employer] (ACR). RADIATION OPTIMIZATION: All CT scans at this facility use at least one of these dose optimization te chniques: automated exposure control; mA and/or kV adjustment per patient size (includes targeted exa ms where dose is matched to clinical indication); or iterative reconstruction.
== END ==
PROVIDERS: PCP Nurse Practitioner Family; Visit Provider Nurse Practitioner Family
DX: Z12.2 Encounter for screening for malignant neoplasm of respiratory organs (principal); F17.210 Nicotine dependence, cigarettes, uncomplicated; R91.1 Solitary pulmonary nodule; R91.8 Other nonspecific abnormal finding of lung field
CPT/HCPCS: 71271

== ENCOUNTER → 2023-10-05 02:19 | Outpatient (CLI) | payer MEDICARE, OTHER, SELFPAY ==
--- NOTE | 2023-10-05 | DI.RAD_ITS ---
Exam(s) XR KNEE LT 3V AP,LAT,STONEY EXAM: XR KNEE LT 3V AP,LAT,STONEY h CLINICAL HISTORY: PAIN LEFT KNEE M25.562. TECHNIQUE: 2D digital imaging was performed. COMPARISON: No exams were available for comparison FINDINGS: 3 views No evidence of fracture or obvious joint effusion. There is mild-moderate narrowing of the medial co mpartment. No obvious osteophytes. Lateral compartment unremarkable. Patellofemoral compartment ap pears unremarkable. Bone density normal. No osseous lesions. IMPRESSION: Mild-moderate narrowing of the medial compartment. DATA REPOSITORY: RADIATION DOSE DELIVERED:
== END ==
PROVIDERS: PCP Nurse Practitioner Family; Visit Provider Nurse Practitioner Family
DX: M25.562 Pain in left knee (principal); M25.862 Other specified joint disorders, left knee
CPT/HCPCS: 71271; 73562

== ENCOUNTER → 2023-10-18 15:42 | Outpatient (BNVA) | payer MEDICARE, OTHER, SELFPAY | PROVIDERS: PCP Nurse Practitioner Family; Referring Provider Nurse Practitioner Family; Visit Provider Urology | DX: N40.1 Benign prostatic hyperplasia with lower urinary tract symptoms (principal); R35.0 Frequency of micturition; N39.43 Post-void dribbling; R97.20 Elevated prostate specific antigen [PSA]; R39.12 Poor urinary stream | CPT/HCPCS: 99443 ==

== ENCOUNTER 2023-11-03 15:58 | Outpatient (CLI) | payer MEDICARE, OTHER, SELFPAY ==
--- NOTE | 2023-11-03 14:57 | DI.RAD_ITS ---
Exam(s) XR HIP PELVIS ADULT BL EXAM: XR HIP PELVIS ADULT BL CLINICAL HISTORY: hip pain. TECHNIQUE: 2D digital imaging was performed. COMPARISON: CR XR HIP PELVIS ADULT BL from 12/14/2021 FINDINGS: 3 views No evidence of pelvic nor hip fracture. No hip joint space narrowing. Additional lateral views of b oth hips reveal no osteophytes. No osseous lesions. Bone density normal. No significant osseous le sions in the visualized pelvis and hips. IMPRESSION: No significant osseous findings in the pelvis and hips. DATA REPOSITORY: RADIATION DOSE DELIVERED:
== END 2023-11-03 15:59 | disposition home or self-care (01) ==
LOC: DIORS 15:58
PROVIDERS: PCP Nurse Practitioner Family; Referring Provider Nurse Practitioner Family; Visit Provider Physician Assistant
DX: M16.11 Unilateral primary osteoarthritis, right hip; M16.12 Unilateral primary osteoarthritis, left hip
CPT/HCPCS: 73521; 99214

== ENCOUNTER 2023-12-27 02:25 | Outpatient (CLI) | payer MEDICARE, OTHER, SELFPAY ==
--- NOTE | 2023-12-27 07:30 | DI.MRI_ITS ---
Exam(s) MR LUMBAR SPINE WO EXAM: MR LUMBAR SPINE WO CLINICAL HISTORY: pain,spinal stenosis, m48.00. TECHNIQUE: Multiplanar multisequence MRI of the Lumbar spine was performed. COMPARISON: None. There are no plain films of the lumbar spine available at the time of this MRI in terpretation. FINDINGS: Five lumbar vertebrae are presumed. Conus medullaris is at normal level. There is no evidence of conus mass nor subjacent clumping of in trathecal nerve roots to suggest arachnoiditis. The distal thecal sac appears unremarkable.There is no evidence of Tarlov intrasacral cysts nor other significant findings within the sacral canal Bones:There are no fractures nor ominous osseous lesions in the lumbar vertebral bodies and visualize d sacrum. A small benign intraosseous hemangiomas is noted in the right-side of the L5 vertebral bod y. With respect to the individual levels... T12-L1: Small right posterolateral annular protrusion. Central canal dimensions are lower normal. T here is no significant foraminal stenosis on either side at this level. Mild facet joint degenerativ e changes are evident bilaterally at this level. L1-2: Moderately decreased disc height and anterior osseous lipping evident at this level. The amoun t of disc space narrowing of the right-side exceeds that on the left. Posteriorly there is mild ranjana lar bulging and there is a superimposed right paracentral disc protrusion which extends posteriorly 4 mm and is approximately 1.3 mm wide. This compresses the thecal sac on the right side at this level . There is mild right-sided foraminal stenosis. No foraminal stenosis on the left side. Mild facet joint degenerative changes more prominent on the right side. L2-3: This level also exhibits asymmetric right-sided disc narrowing. There is broad symmetrical shady ular bulging without a dominant disc herniation. Central canal dimensions are lower normal at this l evel. There is no significant foraminal stenosis on either side at this level.. Only minimal degene rative changes in the facet joints. L3-4: This level exhibits relatively preserved disc height. Posteriorly there is mild central sublig amentous annular bulging.. Mild central spinal canal stenosis. Annular bulging extends into the poornima or of the exiting left neural foramen with mild-moderate left foraminal stenosis at this level and mi nimal foraminal stenosis on the opposite-right side. Facet joints at this level appear relatively un remarkable. L4-5: This level exhibits asymmetric disc space narrowing on the left side, lateral left-sided bridgi ng osteophytes, as well as an element of mild anterolisthesis of L4 upon L5. Posteriorly there is sev ere central spinal canal stenosis due to short AP dimensions of the pedicles, broad annular bulging a nd advanced degenerative changes in both facet joints. There is also significant foraminal stenosis on the left side. There is no significant foraminal stenosis on the right side at this level. The l isthesis at this level is asymmetric, more evident on the left than the right side and the same is tr ue of the loss of disc height enhance the asymmetric left-sided foraminal stenosis. L5-S1: This level exhibits chronic advanced disc space narrowing more so on the right than the left s francis however, there is no distinct dominant focal disc herniation and central canal dimensions are low er normal. There are mild degenerative changes both facet joints. No evidence of significant forami nal stenosis on either side at this level. Soft tissues: There is a benign cortical cyst in the lateral cortex of the right kidney which measur es approximately 1 cm. IMPRESSION: 1. Multilevel findings as described above. The most significant findings are at L4-5 where there is severe spinal canal stenosis and asymmetric left-sided foraminal stenosis for reasons discussed above . 2. There is also significant disc protrusion as described above at L1-2 level which compresses the th ecal sac on the right side there is also mild right-sided foraminal stenosis. 3. Other findings as above. DATA REPOSITORY:
== END 2023-12-27 02:45 ==
PROVIDERS: PCP Nurse Practitioner Family; Visit Provider Student in an Organized Health Care Education/Training Program
DX: M48.07 Spinal stenosis, lumbosacral region (principal)
CPT/HCPCS: 72148

== ENCOUNTER 2024-02-22 21:56 | Outpatient (REF) | payer MEDICARE, OTHER, SELFPAY ==
[2024-02-22 22:51] LABS: COMMENT (LAB VIEW ONLY) 47.76 mg/dL
[2024-02-22 22:58] LABS: Microalb ug/mg Crea 276.8 ug/mg Cr
== END 2024-02-22 21:57 | disposition home or self-care (01) ==
LOC: NCHCN 21:56
PROVIDERS: PCP Nurse Practitioner Family; Visit Provider Nurse Practitioner Family
DX: R80.9 Proteinuria, unspecified (principal)
CPT/HCPCS: 82043; 82570

== ENCOUNTER 2024-03-08 16:58 | Outpatient (REF) | payer MEDICARE, SELFPAY, OTHER ==
--- OUTSIDE RECORDS SUMMARY | 2024-03-08 17:00 | XMS_ITS | Clinical Summary ---
Author Organization [facility] Address [facility] [place] [address] Care Team Providers Care Systems Integration Manager Name Role Phone Jose Luis Juany CHACKO Primary Care Provider [phone] Allergies No known active allergies Medications Medication Sig Dispensed Refills Start Date End Date Status NIFEdipine CC (Adalat CC) 30 mg ER tablet 11/16/2023 Activ e budesonide-formoteroL (Symbicort) 160-4.5 mcg/actuation inhaler (HFA) Inhale 2 puffs into the lungs Twice daily. Active cholecalciferol, Vitamin D3, 10 mcg (400 unit) Capsule Take 400 Units by mouth Daily @ 0600. Active ibuprofen (Advil) 600 mg tablet Take 600 mg by mouth Every 6 hours as needed. 05/02/2021 Active Encounters Date Type Department Care Team Description 02/10/2024 1:00 PM EST Office Visit [facility] [place] [address] Sanya Allen PA Spinal stenosis of lumbar region with neurogenic claudication 02/10/2024 Travel 02/08/2024 Travel 02/08/2024 Transcribe Orders eDH Incoming Referrals [phone] Adis Rosenbaum MD Spinal stenosis, unspecified spinal region 02/08/2024 Transcribe Orders eDH Incoming Referrals [phone] Adis Rosenbaum MD 12/27/2023 Ancillary Procedure Radiology Library at [facility] [place] [phone] Harjeet Nicole MD from Last 3 Months Social History Tobacco Use Types Packs/Day Years Used Date Smoking Tobacco: Never Assessed Sex and Gender Information Value Date Recorded Sex Assigned at Not on file Gender Identity Not on file Sexual Orientation Not on file Last Filed Vital Signs Vital Sign Reading Time Taken Comments Blood Pressure - - Pulse - - Temperature - - Respiratory Rate - - Oxygen Saturation - - Inhaled Oxygen Concentration - - Weight 83.9 kg (185 lb) 02/10/2024 12:51 PM EST Height 172.7 cm (5' 8) 02/10/2024 12:51 PM EST Body Mass Index 28.13 02/10/2024 12:51 PM EST Plan of Treatment Upcoming Encounters Date Type Department Care Team (Late st Contact Info) Description 04/17/2024 10:00 AM EST Office Visit [facility] [place] [address] Leodan Martinez MD [facility] [place] [address] Health Maintenance Due Date Last Done Comments CT Colonography 1950 Colonoscopy 1949 Colorectal Cancer Screening 1950 FIT DNA 1950 FIT 1950 Sigmoidoscopy (10 year) with FIT yearly 1950 Sigmoidoscopy 1950 Hepatitis C Screening 08/19/1967 Lipid Screening 08/19/1967 Tetanus/Diphtheria/Pertussis Vaccines (1 - Tdap) 1968 Zoster vaccine (1 of 2) 08/19/1999 Advance Directive 2004 Pneumoccocal Vaccine: 65+ (1 of 1 - PCV) 2014 Covid-19 Vaccine (4 - season) 2023 01/02/2021, 05/27/2020, 05/06/2020 Influenza (Flu) vaccine (1 o f 1 - Influenza standard series) 11/20/2023 Procedures Procedure Name Priority Date/Time Associated Diagnosis Comments FILM LIBRARY STORAGE ONLY MR SPINE Routine 12/27/2023 12:00 AM EDT from Last 3 Months Results * Film Library- Storage Only MR Spine (12/27/2023 12:00 AM EDT) Narrative RAD - 01/17/2024 11:28 AM EDT This exam is auto-finalizing. It's purpose is for storage only. Harjeet Nicole MD IMG FILM LIBRARY ORD ERABLES LAMAR Mahmood MD from Last 3 Months Care Teams Systems Integration Manager Relationship Specialty Start Date End Date Juany Amaya APRN [address] [place], [place] [id number] PCP - General Family Medicine 02/08/24
--- OUTSIDE RECORDS SUMMARY | 2024-03-08 17:00 | XMS_ITS | Encounter Summary ---
Author Organization [facility] [place] [address] Care Team Providers Care Research Asst Name Role Phone Juany Amaya APRN Primary Care Provider Encounter Details Date Type Department Care Team (Latest Contact Info) Description 02/10/2024 Travel Social History Tobacco Use Types Packs/Day Years Used Date Smoking Tobacco: Never Assessed Sex and Gender Information Value Date Recorded Sex Assigned at Not on file Gender Identity Not on file Sexual Orientation Not on file documented as of this encounter Plan of Treatment Upcoming Encounters Date Type Department Care Team (Late st Contact Info) Description 04/17/2024 10:00 AM EST Office Visit [facility] [place] [address] Leodan Martinez MD [facility] [place] [address] documented as of this encounter Visit Diagnoses Not on filedocumented in this encounter Care Teams Research Asst Relationship Specialty Start Date End Date Juany Amaya APRN [address] [place] [address] PCP - General Family Medicine 02/08/24 documented as of this encounter
--- OUTSIDE RECORDS SUMMARY | 2024-03-08 17:00 | XMS_ITS | Encounter Summary ---
Author Organization [facility] [place] [address] Care Team Providers Care Radiographer Name Role Phone Juany Amaya APRN Primary Care Provider [phone] Reason for Referral * Consultation (Routine) - New Request Specialty Diagnoses / Procedures Referred By Contac t Referred To Contact [facility] and Sp[facility] Center Diagnoses Spinal stenosis of lumbar region with neurogenic claudication Sanya Allen PA [facility] [place] [address] [facility] [place] [address] Referral ID Status Reason Start Date Expiration Date Visits Requested Visits Authorized [id number] New Request Consult, Test & Treat 4 02/09/2025 1 1 Reason for Visit * Reason Comments Establish Care Leg weakness * Consultation (Routine) - Closed Specialty Diagnoses / Procedures Referred By Contac t Referred To Contact [facility] Sp[facility] Center Diagnoses Spinal stenosis, unspecified spinal region PAIN IN BILATERAL HIP'S, OSTEOARTHRITIS IN HIP Adis Rosenbaum MD [address] [place] [address] [facility] [place] [address] Referral ID Status Reason Start Date Expiration Date V isits Requested Visits Authorized [id number] Closed Consult, Test & Treat PCP Updated and/or Approved 01/17/2024 01/16/2025 1 1 Encounter Details Date Type Department Care Team (Late st Contact Info) Description 02/10/2024 1:00 PM EST Office Visit [facility] at [place] [address] Sanya Allen PA [facility] [place] [address] Spinal stenosis of lumbar region with neurogenic claudication Social History Tobacco Use Types Packs/Day Years Used Date Smoking Tobacco: Never Assessed Sex and Gender Information Value Date Recorded Sex Assigned at Not on file Gender Identity Not on file Sexual Orientation Not on file documented as of this encounter Last Filed Vital Signs Vital Sign Reading Time Taken Comments Blood Pressure - - Pulse - - Temperature - - Respiratory Rate - - Oxygen Saturation - - Inhaled Oxygen Concentration - - Weight 83.9 kg (185 lb) 02/10/2024 12:51 PM EST Height 172.7 cm (5' 8) 02/10/2024 12:51 PM EST Body Mass Index 28.13 02/10/2024 12:51 PM EST documented in this encounter Progress Notes * Sanya Allen PA - 02/10/2024 1:00 PM EST [facility] Medical Decision Making: Clement is a 73 y.o. male seen today for a chief complaint of bilateral lower extremity weakness for about 1 year. He reports mild chronic low back pain but no lower extremity pain. He describes the weakness as heaviness and fatigue that worsens as he stands or walks for an extended period of time and tends to worsen throughout the day. He has occasional numbness of the anterior left thigh when he sits. He used to be an avid hiker but can only walk about 1/2 mile, less when going uphill, before he needs to rest due to weakness. On physical exam, strength is intact. MRI shows severe central stenosis at L4-5 with anterolisthesis of L4 on L5 and severe left foraminal stenosis at L3 and L4. We discussed treatment options for this including conservative therapy to include injections, medications, and physical therapy, vs surgery. Since he is not having any radicular pain, it does not seem beneficial for him to try injections or medication management. He did some physical therapy in the summer which did not improve his weakness. Because of this, it seems surgery may be the best option for him. The patient agrees and would like to go ahead and schedule an appointment with a surgeon. [facility], he is encouraged to continue strengthening and stretching exercises at home. Diagnosis: ICD-10-CM 1. Spinal stenosis of lumbar region with neurogenic claudication M48.062 Referral to Pain and SpineCenter (Internal only) XR Lumbar Spine AP Flexion and Extension Only Plan Consult with orthopedic spine surgeon HPI Clement Nelson is a 73 y.o. male seen in referral today upon the request of Adis Rosenbaum for achief complain of bilateral lower extremity weakness. This weakness has been present for about 1 year. He reports a feeling of heaviness and fatigue in his legs that tends to worsen throughout the day and he cannot stand or walk for very long without needing to sit down. He says he has had some mild low back pain his whole life, but this has been manageable. He reports no lower extremity pain. Hedid have some bilateral hip pain this summer which has since resolved. He reports being able to walk maybe 1/2 mile, less when walking uphill, before needing to rest. This frustrates him because he used to be an avid hiker. Denies balance or coordination issues. His left thigh will occasionally go numb when he sits. Denies bowel or bladder incontinence, fevers, or saddle anesthesia. 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 has no history on file for tobacco use. Past Medical History No past medical history on file. No past surgical history on file. Conservative Treatment: Physical Therapy: 1 course of physical therapy this summer, improved hip pain. Home Exercise Program: does some stretching in the morning Medications: Ibuprofen prn Tylenol prn - takes these daily for aches and pains Other Treatments: None Injections: none Physical Examination Wt Readings from Last 1 Encounters: 02/10/24 83.9 kg (185 lb) BMI Readings from Last 1 Encounters: 02/10/24 28.13 kg/m?? Pain: 3 (Last 7days: Lowest- 3 Highest- 6) General: Pleasant, cooperative, Mood and affect are appropriate Posture: Upright Gait: Normal, Non-Antalgic Palpation: No palpable masses, lesions or deformities Skin: Intact with no stigmata of underlying disease. ROM: Full without pain Sensation: Grossly intact throughout all dermatomes Neuro: Strength: LOWER RIGHT LEFT Hip Flex 5/5 5/5 Knee ext 5/5 5/5 Ank DF 5/5 5/5 EHL 5/5 5/5 Plantar Flex 5/5 5/5 Ank Eversion 5/5 5/5 Reflexes: Knees 2/4 2/4 Ankles 2/4 2/4 Clonus - - Provocative Maneuvers: SLR: negative Imaging and Test Review: On the day of this encounter, I independently reviewed the MRI from 12/27/23 Summary of findings: Severe central stenosis at L4-5 with anterolisthesis of L4 on L5. Severe left foraminal stenosis at L3 and L4. CC: Juany Amaya APRN Referring Provider: DENIS Velazco 02/10/2024 [facility] [place] [facility] documented in this encounter Plan of Treatment Upcoming Encounters Date Type Department Care Team (Late st Contact Info) Description 04/17/2024 10:00 AM EST Office Visit [place] [address] Leodan Martinez MD [facility] [place] [address] Scheduled Orders Name Type Priority Associated Diagnoses Orde r Schedule XR Lumbar Spine AP Flexion and Extension Only Imaging Routine Spinal stenosis of lumbar region with neurogenic claudication Expected: 02/24/2024 (Approximate), Expires: 08/25/2024 Scheduled Referrals Name Type Priority Associated Diagnoses Orde r Schedule Referral to Pain and Spine Center (Internal only) Outpatient Referral Routine Spinal stenosis of lumbar region with neurogenic claudication Ordered: 02/10/2024 documented as of this encounter Visit Diagnoses Diagnosis Spinal stenosis of lumbar region with neurogenic claudication Spinal stenosis, lumbar region, with neurogenic claudication documented in this encounter Care Teams Radiographer Relationship Specialty Start Date End Date Juany Amaya APRN [address] [place] [address] PCP - General Family Medicine 02/08/24 documented as of this encounter
--- OUTSIDE RECORDS SUMMARY | 2024-03-08 17:00 | XMS_ITS | Encounter Summary ---
Author Organization [facility] [place] [address] Care Team Providers Care Command Post Craftsman Name Role Phone Juany Amaya APRN Primary Care Provider [phone] Reason for Referral * Consultation (Routine) - Closed Specialty Diagnoses / Procedures Referred By Contac t Referred To Contact Pain and Spine Center Diagnoses Spinal stenosis, unspecified spinal region PAIN IN BILATERAL HIP'S, OSTEOARTHRITIS IN HIP Adis Rosenbaum MD [address] [place] [address] [facility] [place] [address] Referral ID Status Reason Start Date Expiration Date V isits Requested Visits Authorized [id number] Closed Consult, Test & Treat PCP Updated and/or Approved 01/17/2024 01/16/2025 1 1 Encounter Details Date Type Department Care Team (Latest Contact Info) Description 02/08/2024 Transcribe Orders eDH Incoming Referrals [phone] Adis Rosenbaum MD [address] [place] [address] Spinal stenosis, unspecified spinal region Social History Tobacco Use Types Packs/Day Years [...] Office Visit [facility] [place] [address] Leodan Martinez MD [facility] [place] [address] Scheduled Referrals Name Type Priority Associated Diagnoses Orde r Schedule Referral to Pain and Spine Center (Internal only) Outpatient Referral Routine Spinal stenosis, unspecified spinal region Ordered: 02/08/2024 documented as of this encounter Visit Diagnoses Diagnosis Spinal stenosis, unspecified spinal region documented in this encounter Care Teams Command Post Craftsman Relationship Specialty Start Date End Date Juany Amaya APRN [address] [place] [address] PCP - General Family Medicine 02/08/24 documented as of this encounter
--- OUTSIDE RECORDS SUMMARY | 2024-03-08 17:00 | XMS_ITS | Encounter Summary ---
Author Organization [facility] Address [facility] [place] [address] Care Team Providers Care Gold Leaf Layer Name Role Phone Juany Amaya APRN Primary Care Provider [phone] Encounter Details Date Type Department Care Team (Late st Contact Info) Description 02/08/2024 Transcribe Orders eDH Incoming Referrals [phone] Adis Rosenbaum MD [address] [place], [place] [address] Social History Tobacco Use Types Packs/Day Years [...] Office Visit [place] [address] Leodan Martinez MD [facility] [place] [address] documented as of this encounter Visit Diagnoses Not on filedocumented in this encounter Care Teams Gold Leaf Layer Relationship Specialty Start Date End Date Juany Amaya APRN [address] [place] [address] PCP - General Family Medicine 02/08/24 documented as of this encounter
--- OUTSIDE RECORDS SUMMARY | 2024-03-08 17:00 | XMS_ITS | Encounter Summary ---
Author Organization [facility] [place] [address] Care Team Providers Care Weather Forecaster Name Role Phone Juany Amaya APRN Primary Care Provider [phone] Encounter Details Date Type Department Care Team (Latest Contact Info) Description 02/08/2024 Travel Social History Tobacco Use Types Packs/Day [...] Office Visit [facility] [place] [address] Leodan Martinez MD [facility] [place] [address] documented as of this encounter Visit Diagnoses Not on filedocumented in this encounter Care Teams Weather Forecaster Relationship Specialty Start Date End Date Juany Amaya APRN [address] [place] [address] PCP - General Family Medicine 02/08/24 documented as of this encounter
--- OUTSIDE RECORDS SUMMARY | 2024-03-08 17:01 | XMS_ITS | Encounter Summary ---
Author Organization [facility] [place] [address] Care Team Providers Care Table Worker Packager Name Role Phone Unavailable Primary Care Provider Unavailabl e Encounter Details Date Type Department Care Team (Late st Contact Info) Description 12/27/2023 Ancillary Procedure Radiology Library at [facility] [place] [address] Harjeet Nicole MD [facility] [place] [address] Social History Tobacco Use Types Packs/Day Years [...] Office Visit [place] [address] Leodan Martinez MD [facility] [place] [address] documented as of this encounter Procedures Procedure Name Priority Date/Time Associated Diagnosis Comments FILM LIBRARY STORAGE ONLY MR SPINE Routine 12/27/2023 12:00 AM EDT documented in this encounter Results * Film Library- Storage Only MR Spine (12/27/2023 12:00 AM EDT) Narrative [facility] - 01/17/2024 11:28 AM EDT This exam is auto-finalizing. It's purpose is for storage only. Harjeet Nicole MD IM FILM LIBRARY ORD ERABLES Performing Organization Address City/State/[facility] Co de Phone Number [facility], [place] documented in this encounter Visit Diagnoses Not on filedocumented in this encounter
--- OUTSIDE RECORDS SUMMARY | 2024-03-08 17:01 | XMS_ITS | Referral Summary ---
Author Organization [facility] Address [address] [place] [address] Care Team Providers Care Drying Room Operator Name Role Phone Unknown, Provider MD Primary Care Provider Unava ilable Social History Tobacco Use Types Packs/Day Years Used Date Smoking Tobacco: Never Assessed Interpersonal Safety Answer Date Record ed Physically Hurt Never 10/22/2019 Verbally Threaten Not on file 10/22/2019 Sex and Gender Information Value Date Recorded Sex Assigned at Not on file Legal Sex Male 15:48 EDT Gender Identity Not on file Sexual Orientation Not on file Plan of Treatment Not on file Procedures Procedure Name Priority Date/Time Associated Diagnosis Comments MR OUTSIDE IMAGES LUMBAR SPINE Routine 12/27/2023 15:10 EDT from Last 3 Months Results * MR OUTSIDE IMAGES LUMBAR SPINE (12/27/2023 15:10 EDT) Narrative 01/26/2024 15:10 EST This is a non-reportable exam. us External Imaging IMG OTHER IMAGING ORDERABLES Fi nal Result from Last 3 Months Insurance MEDICARE [facility] [place] MEDICARE [place] [facility] [place] Care Teams Drying Room Operator Relationship Specialty Start Date End Date Unknown, Provider, PCP - General 12/22/18
--- OUTSIDE RECORDS SUMMARY | 2024-03-08 17:01 | XMS_ITS | Encounter Summary ---
Author Organization [facility] Address [address] [place] [address] Care Team Providers Care Cotton Tier Name Role Phone Unknown, Provider Primary Care Provider Unava ilable Encounter Details Date Type Department Care Team (Late st Contact Info) Description 02/13/2020 Lab Requisition [facility] Pathology & Laboratory Medicine - [facility] [address] [place] [address] Outr Resulting Lab, Provider Social History Tobacco [...] 0.0 - 6.5 ng/mL 03/13/2020 14:29 EST [facility] Blood VENOUS BLOOD / Unknown 01/24/2020 12:09 EST 03/12/2020 8:33 EST Narrative [facility] - 03/13/2020 14:29 EST NOTE: Serum PSA concentration should not be interpreted as absolute evidence for the presence or absence of malignant disease. Assayed on Siemens ADVIA Centaur XPT using chemiluminescent technology.??Values obtained by using different assay methods cannot be used interchangeably. us Provider Outr Resulting Lab CHEMISTRY & BLOOD GA S ORDERABLES Final Result [facility] [address] [place] [address] documented in this encounter Visit Diagnoses Not on filedocumented in this encounter Care Teams Cotton Tier Relationship Specialty Start Date End Date Unknown, Provider, PCP - General 12/22/18 documented as of this encounter
--- OUTSIDE RECORDS SUMMARY | 2024-03-08 17:01 | XMS_ITS | Clinical Summary ---
Author Organization [facility] Address [address] [place] [address] Care Team Providers Care Foreign Food Specialty Cook Name Role Phone Unknown, Provider Primary Care Provider Unava ilable Social History [...] Last Done Comments Hepatitis C Screen 1950 Fall Risk Screening 2014 COVID-19 Vaccine ( season) 2023 01/02/2021, 05/27/2020, 05/06/2020 RSV Immunization ( o r 60+ Years) (1 - 1-dose 75+ series) 2024 Procedures Procedure Name Priority Date/Time Associated Diagnosis Comments MR OUTSIDE IMAGES LUMBAR SPINE Routine 12/27/2023 15:10 EDT from Last 3 Months Results * MR OUTSIDE IMAGES LUMBAR SPINE (12/27/2023 15:10 EDT) Narrative 01/26/2024 15:10 EST This is a non-reportable exam. us External Imaging IMG OTHER IMAGING ORDERABLES Fi nal Result from Last 3 Months Insurance MEDICARE MEDICARE Care Teams Foreign Food Specialty Cook Relationship Specialty Start Date End Date Unknown, Provider, PCP - General 12/22/18
--- OUTSIDE RECORDS SUMMARY | 2024-03-08 17:01 | XMS_ITS | Encounter Summary ---
Author Organization [facility] Address [address] [place] [address] Care Team Providers Care Mixer Runner Name Role Phone Unknown, Provider Primary Care Provider Unava ilable Encounter Details Date Type Department Care Team (Latest Contact Info) Description 12/22/2018 10:24 EDT - 12/22/2018 23:59 EDT Hospital Encounter [address] [address] Unknown, Provider, Discharge Disposition: Home or Self Care Social History Tobacco Use Types Packs/Day Years Used Date Smoking Tobacco: Never Assessed Sex and Gender Information Value Date Recorded Sex Assigned at Not on file Legal Sex Male 15:48 EDT Gender Identity Not on file Sexual Orientation Not on file documented as of this encounter Discharge Disposition Disposition Code Departure Means Destination Home or Self Senior Living documented in this encounter Plan of Treatment Not on file documented as of this encounter Visit Diagnoses Not on filedocumented in this encounter Care Teams Mixer Runner Relationship Specialty Start Date End Date Unknown, Provider, PCP - General 12/22/18 documented as of this encounter
--- OUTSIDE RECORDS SUMMARY | 2024-03-08 17:01 | XMS_ITS | Encounter Summary ---
Author Organization [facility] Address [address] [place] [address] Care Team Providers Care Game Trapper Name Role Phone Unknown, Provider Primary Care Provider Unava ilable Encounter Details Date Type Department Care Team (Late st Contact Info) Description 10/07/2022 Lab Requisition [facility] Pathology & Laboratory Medicine - [facility] [address] [place] [address] Franky Abraham MD [address] [place] [address], [address] [place] [address] Encounter for screening for malignant neoplasm of [...] management options, if applicable. 10/12/2022 9:16 EDT [facility] Final Diagnosis A. RECTUM, POLYPS, BIOPSY: - Hyperplastic polyps. 10/12/2022 9:16 T [facility] Attestation There was significant resident/fellow involvement in the diagnostic evaluation of this case. By the signature below, the attending physician certifies that they have personally conducted a gross and/or microscopic examination of the described specimens and rendered or confirmed the above diagnosis. 10/12/2022 9:16 T [facility] at 0916 Clinical History Rectal polyps 10/12/2022 9:16 EDT [facility] Gross Description A. Received in formalin labelled with proper patient identification (initials P, M) and rectal polyps are 3 victoria-brown tissues (0.3 x 0.1 x 0.1 cm to 0.5 x 0.4 x 0.2 cm). Entirely submitted in A1. DENIS FLANNERY(ASCP) 10/08/2022 8:51 10/12/2022 9:16 EDT [facility] Resident/Emmanuel w: Ketty Garcia DO 10/12/2022 9:16 [facility] Performing Lab [facility] 10/12/2022 9:16 [facility] Scanned Images 10/12/2022 9:16 [facility] Tissue SPECIMEN FROM RECTUM / Unknown 10/07/2022 11:10 EDT 10/07/2022 18:13 EDT us Franky Abraham MD PATHOLOGY ORDERABLES Final Resu lt [facility] [address] [place] [address] documented in this encounter Visit Diagnoses Diagnosis Encounter for screening for malignant neoplasm of colon Special screening for malignant neoplasms, colon documented in this encounter Care Teams Game Trapper Relationship Specialty Start Date End Date Unknown, Provider, PCP - General 12/22/18 documented as of this encounter
--- OUTSIDE RECORDS SUMMARY | 2024-03-08 17:01 | XMS_ITS | Encounter Summary ---
Author Organization [facility] Address [address] [place] [address] Care Team Providers Care Deicer Inspector Pneumatic Name Role Phone Unknown, Provider Primary Care Provider Unava ilable Encounter Details Date Type Department Care Team (Late st Contact Info) Description 02/22/2022 Lab Requisition [facility] Pathology & Laboratory Medicine - [address] [address] Outr Resulting Lab, Provider Social History Tobacco [...] 85 See Note ug/dL 02/24/2022 9:38 EST [facility] Comment: NOTE: Reference ranges have not been established for this age demographic. Blood VENOUS BLOOD / Unknown 02/22/2022 10:25 EST 02/22/2022 21:46 EST us Provider Outr Resulting Lab CHEMISTRY & BLOOD GA S ORDERABLES Final Result [facility] [address] [place] [address] documented in this encounter Visit Diagnoses Not on filedocumented in this encounter Care Teams Deicer Inspector Pneumatic Relationship Specialty Start Date End Date Unknown, Provider, PCP - General 12/22/18 documented as of this encounter
--- OUTSIDE RECORDS SUMMARY | 2024-03-08 17:01 | XMS_ITS | Encounter Summary ---
Author Organization [facility] Address [address] [place] [address] Care Team Providers Care Retail Advertising Sales Manager Name Role Phone Unknown, Provider Primary Care Provider Unava ilable Encounter Details Date Type Department Care Team (Late st Contact Info) Description 11/27/2021 Lab Requisition [facility] Pathology & Laboratory Medicine - [facility] [address] [place] [address] Outr Resulting Lab, Provider Social History Tobacco [...] Swab 11/26/2021 9:52 EDT 11/27/2021 21:31 EDT us Provider Outr Resulting Lab MICROBIOLOGY - GENER AL ORDERABLES Final Result [facility] [address] [place] [address] * COVID-19 TESTING (11/26/2021 9:52 EDT) COVID-19 rt-PCR Result Negative Negative 11/28/2021 12:04 EDT [facility] Comment: This test has not [...] epidemiological information. Testing was performed using the danita SARS-CoV-2 assay ([employer] on the Danita 6800 System Performing Lab Danita [address] [facility] Lab 11/28/2021 12:04 EDT [facility] Swab 11/26/2021 9:52 EDT 11/27/2021 21:31 EDT us Provider Outr Resulting Lab MICROBIOLOGY - GENER AL ORDERABLES Final Result [facility] [address] [place] [address] documented in this encounter Visit Diagnoses Not on filedocumented in this encounter Care Teams Retail Advertising Sales Manager Relationship Specialty Start Date End Date Unknown, Provider, PCP - General 12/22/18 documented as of this encounter
--- OUTSIDE RECORDS SUMMARY | 2024-03-08 17:01 | XMS_ITS | Encounter Summary ---
Author Organization [facility] Address [address] [place] [address] Care Team Providers Care Edging Machine Catcher Name Role Phone Unknown, Provider Primary Care Provider Unava ilable Encounter Details Date Type Department Care Team (Late st Contact Info) Description 2022 Lab Requisition [facility] Pathology & Laboratory Medicine - [facility] [address] [place] [address] Outr Resulting Lab, Provider Social History Tobacco [...] PSA 6.9(H) <=6.5 ng/mL 2022 18:24 EDT [facility] Blood VENOUS BLOOD / Unknown 08/17/2022 14:50 EDT 2022 17:12 EDT Narrative [facility] - 2022 18:24 EDT NOTE: Serum PSA concentration should not be interpreted as absolute evidence for the presence or absence of malignant disease. Assayed on Siemens ADVIA Centaur XPT using chemiluminescent technology.??Values obtained by using different assay methods cannot be used interchangeably. us Provider Outr Resulting Lab CHEMISTRY & BLOOD GA S ORDERABLES Final Result [facility] [address] [place] [address] documented in this encounter Visit Diagnoses Not on filedocumented in this encounter Care Teams Edging Machine Catcher Relationship Specialty Start Date End Date Unknown, Provider, PCP - General 12/22/18 documented as of this encounter
--- OUTSIDE RECORDS SUMMARY | 2024-03-08 17:01 | XMS_ITS | Encounter Summary ---
Author Organization [facility] Address [address] [place] [address] Care Team Providers Care German Instructor Name Role Phone Unknown, Provider Primary Care Provider Unava ilable Encounter Details Date Type Department Care Team (Late st Contact Info) Description 01/29/2021 Lab Requisition [facility] Pathology & Laboratory Medicine - [facility] [address] [place] [address] Outr Resulting Lab, Provider Social History Tobacco [...] 0.0 - 6.5 ng/mL 01/29/2021 18:23 EST [facility] Blood VENOUS BLOOD / Unknown 01/28/2021 14:35 EST 01/29/2021 17:25 EST Narrative [facility] - 01/29/2021 18:23 EST NOTE: Serum PSA concentration should not be interpreted as absolute evidence for the presence or absence of malignant disease. Assayed on Siemens [employer]aur XPT using chemiluminescent technology.??Values obtained by using different assay methods cannot be used interchangeably. us Provider Outr Resulting Lab CHEMISTRY & BLOOD GA S ORDERABLES Final Result [facility] [address] [place] [id number] documented in this encounter Visit Diagnoses Not on filedocumented in this encounter Care Teams German Instructor Relationship Specialty Start Date End Date Unknown, Provider, PCP - General 12/22/18 documented as of this encounter
--- OUTSIDE RECORDS SUMMARY | 2024-03-08 17:01 | XMS_ITS | Encounter Summary ---
Author Organization [facility] Address [address] [place] [address] Care Team Providers Care Gas Turbine Mechanic Name Role Phone Unknown, Provider MD Primary Care Provider Unava ilable Encounter Details Date Type Department Care Team (Late st Contact Info) Description 02/14/2019 Lab Requisition [facility] Pathology & Laboratory Medicine - [facility] [address] [place] [address] Unknown, Provider, Social History Tobacco Use Types Packs/Day Years [...] Lyme Ab Negative Negative 02/16/2019 11:41 EST [facility] Blood VENOUS BLOOD / Unknown 02/13/2019 12:18 EST 02/14/2019 16:08 EST us Provider Unknown IMMUNOLOGY AND SEROLOGY ELINOR FERNANDEZ Final Result [facility] [address] [place] [address] documented in this encounter Visit Diagnoses Not on filedocumented in this encounter Care Teams Gas Turbine Mechanic Relationship Specialty Start Date End Date Unknown, Provider, PCP - General 12/22/18 documented as of this encounter
--- OUTSIDE RECORDS SUMMARY | 2024-03-08 17:01 | XMS_ITS | Encounter Summary ---
Author Organization [facility] Address [address] [place] [address] Care Team Providers Care Senior Court Office Assistant Name Role Phone Unknown, Provider Primary Care Provider Unava ilable Encounter Details Date Type Department Care Team (Late st Contact Info) Description 12/22/2018 Results Only [facility] [phone] Debi Reaves MD [address] [place] [address] [phone] Social History Tobacco Use Types Packs/Day Years [...] ? CLEMENT NELSON ? Accession #: ? [id number] ? : ? 1950 (Age: 68) ??M [...] (ASCP) 12/22/2018 6:13 PM End of Report [facility] 12/22/2018 15:4 9 EDT 12/22/2018 15:49 EDT us Debi Reaves MD PATHOLOGY ORDERABLES Final Resul t [facility] [address] [place] [address] documented in this encounter Visit Diagnoses Not on filedocumented in this encounter Care Teams Senior Court Office Assistant Relationship Specialty Start Date End Date Unknown, Provider, PCP - General 12/22/18 documented as of this encounter
--- OUTSIDE RECORDS SUMMARY | 2024-03-08 17:01 | XMS_ITS | Encounter Summary ---
Author Organization [facility] Address [address] [place] [address] Care Team Providers Care Center Line Cutter Operator Name Role Phone Unknown, Provider Primary Care Provider Unava ilable Encounter Details Date Type Department Care Team (Late st Contact Info) Description 02/16/2023 Lab Requisition [facility] Pathology & Laboratory Medicine - [facility] [address] [place] [address] Outr Resulting Lab, Provider Social History Tobacco [...] PSA 6.7(H) <=6.5 ng/mL 02/16/2023 20:10 EST [facility] Blood VENOUS BLOOD / Unknown 02/15/2023 14:00 EST 02/16/2023 17:28 EST Narrative [facility] - 02/16/2023 20:10 EST NOTE: Serum PSA concentration should not be interpreted as absolute evidence for the presence or absence of malignant disease. Assayed on Siem[employer] Centaur XPT using chemiluminescent technology.??Values obtained by using different assay methods cannot be used interchangeably. us Provider Outr Resulting Lab CHEMISTRY & BLOOD GA S ORDERABLES Final Result [facility] [address] [place] [address] documented in this encounter Visit Diagnoses Not on filedocumented in this encounter Care Teams Center Line Cutter Operator Relationship Specialty Start Date End Date Unknown, Provider, PCP - General 12/22/18 documented as of this encounter
[2024-03-08 17:51] LABS: Abs Immature Grans 0.05 10^3/uL (0.0-0.06); Absolute Basophil Count 0.06 10^3/uL (0.0-0.2); Absolute Eosinophil Count 0.33 10^3/uL (0.0-0.7); Absolute Lymphocyte Count 2.17 10^3/uL (1.2-3.4); Absolute Monocyte Count 0.51 10^3/uL (0.1-0.8); Basophils % 0.7 %; Eosinophils % 4.1 %; HCT 50.4 % (40.0-50.0); HGB 16.5 g/dL (13.5-17.5); Immature Grans % 0.6 %; Lymphocytes % 26.7 %; MCH 30.7 pg (27.0-33.0); MCHC 32.7 % (32.0-36.0); MCV 94 fL (80-95); MPV 10.9 fL (8.0-11.0); Monocytes % 6.3 %; Neutrophils % 61.6 %; Platelet Count 310 10^3/uL (130-400); RBC 5.37 10^6/uL (4.36-5.78); RDW-SD 48.6 fL; WBC 8.12 10^3/uL (4.4-10.8)
[2024-03-08 17:53] LABS: ESR 17 mm/hr (0-20)
[2024-03-08 18:03] LABS: ALT 20 U/L (16-63); AST 28 U/L (15-37); Albumin 3.8 g/dL (3.4-5.0); Alkaline Phosphatase 77 U/L (46-116); Anion Gap 10.5 mmol/L (3-11); BUN 17 mg/dL (7-18); Bilirubin, Total 0.52 mg/dL (0.2-1.0); CO2 25.5 mmol/L (21.0-32.0); Calcium 8.9 mg/dL (8.5-10.1); Chloride 105 mmol/L (98-107); Estimated GFR 78.98 (mL/min/1.73m2); Glucose 99 mg/dL (74-106); Potassium 4.9 mmol/L (3.5-5.1); Sodium 141 mmol/L (136-145); Total Protein 6.9 g/dL (6.4-8.2)
[2024-03-08 18:18] LABS: Calculated LDL 196 mg/dL (<100); Cholesterol 271 mg/dL (<200); HDL Cholesterol 59 mg/dL (40-60); Triglyceride 81 mg/dL (<150)
[2024-03-08 18:27] LABS: Hemoglobin A1C 5.8 % (<5.7)
[2024-03-09 18:18] LABS: Rheumatoid Factor <8.6 IU/mL (<12.0)
[2024-03-09 18:46] LABS: PSA, Screening 7.4 ng/mL (<=6.5)
[2024-03-12 14:42] LABS: ANA Interpretation Positive (Negative); ANA Titer Pattern 1:320 Speckled
== END 2024-03-08 16:59 | disposition home or self-care (01) ==
LOC: NCHCN 16:58
PROVIDERS: PCP Nurse Practitioner Family; Visit Provider Nurse Practitioner Family
DX: E78.5 Hyperlipidemia, unspecified (principal); R73.03 Prediabetes; R97.20 Elevated prostate specific antigen [PSA]
CPT/HCPCS: 80053; 80061; 84153; 85652; 83036; 85025; 86038; 86431

== ENCOUNTER 2024-08-29 14:40 | Outpatient (REF) | payer MEDICARE, OTHER, SELFPAY ==
[2024-08-29 22:07] LABS: ALT 25 U/L (16-63); AST 19 U/L (15-37); Albumin 3.8 g/dL (3.4-5.0); Alkaline Phosphatase 79 U/L (46-116); Anion Gap 6.3 mmol/L (3-11); BUN 21 mg/dL (7-18); Bilirubin, Total 0.3 mg/dL (0.2-1.0); CO2 28.7 mmol/L (21.0-32.0); CREATININE 1.1 mg/dL (0.70-1.30); Calculated LDL 125 mg/dL (<100); Chloride 103 mmol/L (98-107); Cholesterol 196 mg/dL (<200); Estimated GFR 70.01 (mL/min/1.73m2); Glucose 95 mg/dL (74-106); HDL Cholesterol 54 mg/dL (>or=40); Potassium 4.9 mmol/L (3.5-5.1); Sodium 138 mmol/L (136-145); Total Protein 6.9 g/dL (6.4-8.2); Triglyceride 89 mg/dL (<150)
[2024-08-29 22:08] LABS: Hemoglobin A1C 6.1 % (<5.7)
== END 2024-08-29 14:41 | disposition home or self-care (01) ==
LOC: NCHCN 14:40
PROVIDERS: PCP Nurse Practitioner Family; Visit Provider Nurse Practitioner Family
DX: E78.5 Hyperlipidemia, unspecified (principal); R73.03 Prediabetes
CPT/HCPCS: 80053; 80061; 83036

== ENCOUNTER 2024-10-09 02:00 | Outpatient (CLI) | payer MEDICARE, OTHER, SELFPAY ==
--- NOTE | 2024-10-09 | DI.CTLCSR_ITS ---
Exam(s) CT CHEST LUNG CANCER SCREEN EXAM: CT CHEST LUNG CANCER SCREEN CLINICAL HISTORY: Smoker, nicotine dependence F17.210 TECHNIQUE: Imaging Protocol: Axial computed tomography images with coronal and sagittal reformatted images were created and reviewed. Low dose screening protocol. COMPARISON: CT CT CHEST LUNG CANCER SCREEN from 09/17/2022 FINDINGS: Tracheobronchial tree: No bronchiectasis or mucus plugging. Mediastinum and Eliz: No dominant adenopathy or fluid collection. Pulmonary parenchyma: No consolidation or dominant measurable mass. Mild emphysematous changes. Bleb medial right lung apex. Mild interstitial changes. Lung Nodules: No stable 6 millimeter nodule in the right lower lobe superior segment. Stable perifissural nodules on the right. Pleura: No effusion. No pneumothorax. Heart: The heart is not dilated. Minimal coronary artery calcifications are seen. No pericardial effusion. Aorta: Thoracic aorta non-dilated. Upper abdomen: Unremarkable. Bones: Advanced degenerative changes in the thoracic spine. Mild scoliosis. Soft Tissues: Minimal bilateral gynecomastia. IMPRESSION: No suspicious pulmonary nodules. Lung RADS Cat 2 - Benign Appearance / Behavior: Nodules with a very low likelihood of becoming a clinically active cancer due to size or lack of growth Lung-RADS 1.0 CATEGORIES: Category 0 - Prior chest CT exam(s) being located for comparison. Category 1 - Annual screening in 12 months. No nodules or definitely benign nodules. Category 2 - Annual screening in 12 months. Benign appearance. Nodules with low likelihood of becoming active cancer. Category 3 - 6-month follow-up. Probably benign. Short-term follow-up suggested. Nodules with low likelihood of becoming active cancer. Category 4A - 3-month follow-up and CT/PET if >8 mm in size. Suspicious finding. Findings which require additional testing. Category 4B - Findings which require additional testing and tissue sampling. Category 4X - Category 3 or 4 nodules with additional features or imaging findings that increases the suspicion of malignancy. Modifier S- Potentially clinically significant findings (non lung cancer) RADIATION DOSE DELIVERED: 33.61mGy.cm Total DLP DATA REPOSITORY: All CT scans at this facility are submitted to the National Radiology Data Registry (NRDR) Dose Index Registry (DIR) with the [employer] (ACR). RADIATION OPTIMIZATION: All CT scans at this facility use at least one of these dose optimization techniques: automated exposure control; mA and/or kV adjustment per patient size (includes targeted exams where dose is matched to clinical indication); or iterative reconstruction.
--- NOTE | 2024-10-09 | DI.US_ITS ---
Exam(s) US AAA SCREENING EXAM: US AAA SCREENING CLINICAL HISTORY: SCREENING FOR AAA, HYPERTENSION,I10 COMPARISON: CT CT ABDOMEN PELVIS WO/W from 08/02/[address] CHEST LUNG CANCER SCREEN from 10/05/2023 FINDINGS: Abdominal Aorta: Proximal: 2.2 cm Mid: 2.0 cm Distal: 1.7 cm Iliacs: Right: 1.1 cm Left: 1.0 cm IMPRESSION: No evidence of abdominal aortic aneurysm. DATA REPOSITORY:
== END 2024-10-09 02:20 ==
LOC: DI 02:03
PROVIDERS: PCP Nurse Practitioner Family; Visit Provider Nurse Practitioner Family
DX: Z12.2 Encounter for screening for malignant neoplasm of respiratory organs (principal); F17.210 Nicotine dependence, cigarettes, uncomplicated; Z13.6 Encounter for screening for cardiovascular disorders
CPT/HCPCS: 71271; 76706

== ENCOUNTER 2024-10-11 16:05 | Outpatient (REF) | payer MEDICARE, OTHER, SELFPAY ==
[2024-10-11 22:47] LABS: PSA, Diagnostic 8.7 ng/mL (<=6.5)
== END 2024-10-11 16:06 | disposition home or self-care (01) ==
LOC: NCHCN 16:05
PROVIDERS: PCP Nurse Practitioner Family; Visit Provider Nurse Practitioner Family
DX: N40.1 Benign prostatic hyperplasia with lower urinary tract symptoms (principal)
CPT/HCPCS: 84153

== ENCOUNTER → 2024-10-16 14:24 | Outpatient (BNVA) | payer MEDICARE, OTHER, SELFPAY | PROVIDERS: PCP Nurse Practitioner Family; Referring Provider Nurse Practitioner Family; Visit Provider Urology | DX: N40.0 Benign prostatic hyperplasia without lower urinary tract symptoms (principal); R97.20 Elevated prostate specific antigen [PSA] | CPT/HCPCS: 99214; 81002 ==

== ENCOUNTER → 2024-11-15 13:03 | Outpatient (BNVA) | payer MEDICARE, OTHER, SELFPAY | PROVIDERS: PCP Nurse Practitioner Family; Referring Provider Nurse Practitioner Family; Visit Provider Urology | DX: R97.20 Elevated prostate specific antigen [PSA] (principal) | CPT/HCPCS: 99214 ==

== ENCOUNTER 2024-11-15 13:45 | Outpatient (CLI) | payer MEDICARE, OTHER, SELFPAY ==
--- NOTE | 2024-11-15 06:00 | DI.RAD_ITS ---
Exam(s) XR PAIN CLINIC LUMBAR SP 2V EXAM: XR PAIN CLINIC LUMBAR SP 2V CLINICAL HISTORY: DX: Lumbar Radiculopathy TECHNIQUE: 2D and realtime digital imaging was performed. CONTRAST MATERIAL: Refer to procedure report. COMPARISON: No exams were available for comparison FINDINGS: Fluoroscopy was provided for Dr. Alvarez during the performance of a lumbar epidural steroid injection. Please refer to the procedure report for complete details. Ka,r=5.5 mGy IMPRESSION: RADIATION DOSE DELIVERED: 0.0 0.0 0
[2024-11-15 13:57] VITALS: BP 119/77; PULSE 77; RESP 20; TEMP 36.7; O2SAT 96
[2024-11-15 14:41] VITALS: PULSE 71; O2SAT 97
[2024-11-15 14:43] VITALS: BP 138/76; PULSE 72; PULSE 79; RESP 18; O2SAT 99
[2024-11-15 14:50] VITALS: PULSE 77; RESP 17; O2SAT 97
--- NOTE | 2024-11-15 14:51 | PDOC.PAIN_ITS ---
Date of service: 11/15/24 Time of Service: 14:51 Pain Managment Procedure Note Procedure Note Procedure Note: PROCEDURE NOTE LUMBAR EPIDURAL STEROID INJECTION Date of Service: November 15, 2024 Patient:Clement Laird? Provider: Дмитрий Smith DO, MPH Clement Nelson has been referred to the [facility] for a lumbar epidural steroid injection. Pre-operative diagnosis: Lumbosacral Radiculopathy ICD-10 M54.16 Post-operative diagnosis: Same Pre-Procedure Pain: VAS= 7 /10 Comments: The patient was seen by Dr. Crane and this procedure was recommended. No change in symptoms since his last visit. Clement was interviewed and the medical record was reviewed.? There were no medical, pharmacologic, radiographic or other structural contraindications to attempting fluoroscopically guided Lumbar epidural steroid injection.? Risks, potential side effects, indications, and potential benefits of the procedure were reviewed with Clement.? Questions and concerns were addressed.? After it was clear that Clement was fully informed about the procedure, the printed consent form was signed by the patient and myself.? Clement was placed in the prone position on the fluoroscopy table and automated blood pressure cuff and pulse oximeter applied. The skin entry point for entering/approaching the epidural space for the lumbar epidural steroid injection was marked. Following thorough chlorhexadine preparation of the skin and draping and 1% lidocaine infiltration of the skin entry point and subcutaneous tissues, an 18 gauge Touhy needle was placed and advanced under fluoroscopic guidance and with loss of resistance technique into the L5-S1 epidural space. Needle tip placement and depth were aided and confirmed by fluoroscopy. There was no paresthesia or return of blood or CSF through the needle. 1 mls of Omnipaque 240 was injected with clear epidural spread confirmed with fluoroscopy. 80 mg of Depo-Medrol was? injected. This was followed by 1 ml of preservative-free normal saline to flush the steroid out of the needle. There was no unusual discomfort expressed by Clement. The needle was withdrawn without difficulty. (49 mls of Omnipaque was wasted) Clement was observed and was without hemodynamic, neurologic, or allergic reactions.? Fluoroscopic images were digitally archived. Clement's vital signs were stable throughout the procedure and were as recorded in nursing records. Follow up plans and appointments were discussed with Clement. Post procedure instruction was given as documented in nursing records and having met discharge criteria Clement was discharged from the [facility] Management [facility]. COMMENTS: No apparent complications. Post-procedure pain: VAS= 1/10. Miles to contact [facility] as needed. If at least 50% improvement in pain and/or function for at least 3 months is achieved, this procedure can be repeated. I personally performed this entire procedure. ДМИТРИЙ SMITH DO, MPH ABPMR-subspecialty board certification in Pain Medicine [facility] Coding Conscious Sedation used for procedure: No CPT Codes: Inj Spine L/S w/Imaging - 33880 ([id number] ~G) Additional Codes: Date of Service (46250) Date of service: 11/15/24 Diagnoses: Lumbar radiculopathy
[2024-11-15 14:52] VITALS: BP 128/87; PULSE 73
[2024-11-15] MEDS: Epidural Tray 1 EACH MC (14:59)
[2024-11-15] MEDS: Omnipaque 240 MG/ML 50 ML BTL IJ (14:59)
[2024-11-15] MEDS: methylPREDNISolone ACETATE 80 MG/ML VIAL IJ (15:00)
== END 2024-11-15 13:46 | disposition home or self-care (01) ==
PROVIDERS: PCP Nurse Practitioner Family; Visit Provider Preventive Medicine Occupational Medicine
DX: M54.50 Low back pain, unspecified (principal); M54.16 Radiculopathy, lumbar region
CPT/HCPCS: 62323; 72100; 99214; J1010; Q9967

== ENCOUNTER → 2024-12-04 12:24 | Outpatient (BNVA) | payer MEDICARE, OTHER, SELFPAY | PROVIDERS: PCP Nurse Practitioner Family; Referring Provider Nurse Practitioner Family; Visit Provider Urology | DX: R97.20 Elevated prostate specific antigen [PSA] (principal) | CPT/HCPCS: 55700; 76872 ==

== ENCOUNTER 2024-12-04 12:50 | Outpatient (REF) | payer MEDICARE, OTHER, SELFPAY ==
--- NOTE | 2024-12-04 13:00 | PROST_PTH ---
PATIENT: Clement Nelson LOC: [facility] U#:[id number] AGE/SX: 74/M ROOM: RE12/04/[address]: Eddie Espino MD : 1950 BED: DIS: 12/04/2024 SPEC #: [id number] RECD: 12/04/24 16:35 STATUS: BEN RE #: [id number] CHANDU: 12/04/24 13:[address]: Eddie Espino DEPT: Surgical Specimen RECD BY: Anayeli Escobar ENTERED: 12/04/24 16:37 SP TYPE: PROST OTHR DR: Juany Amaya Tissues: 1 - PROSTATE NEEDLE BIOPSY 2 - PROSTATE NEEDLE BIOPSY 3 - PROSTATE NEEDLE BIOPSY 4 - PROSTATE NEEDLE BIOPSY 5 - PROSTATE NEEDLE BIOPSY 6 - PROSTATE NEEDLE BIOPSY 7 - PROSTATE NEEDLE BIOPSY 8 - PROSTATE NEEDLE BIOPSY 9 - PROSTATE NEEDLE BIOPSY 10 - PROSTATE NEEDLE BIOPSY 11 - PROSTATE NEEDLE BIOPSY 12 - PROSTATE NEEDLE BIOPSY Procedures: GROSS AND MICRO LEVEL 4 IMMUNOPEROXIDASE STAIN Comments: [id number]
== END 2024-12-04 12:51 | disposition home or self-care (01) ==
LOC: LBN 12:50
PROVIDERS: PCP Nurse Practitioner Family; Visit Provider Urology
DX: C61 Malignant neoplasm of prostate (principal)
CPT/HCPCS: 88305; 88361

== ENCOUNTER → 2024-12-18 10:55 | Outpatient (BNVA) | payer MEDICARE, OTHER, SELFPAY | PROVIDERS: PCP Nurse Practitioner Family; Referring Provider Nurse Practitioner Family; Visit Provider Urology | DX: R97.20 Elevated prostate specific antigen [PSA] (principal) | CPT/HCPCS: 99214 ==

== ENCOUNTER 2025-02-28 15:45 | Outpatient (REF) | payer MEDICARE, OTHER, SELFPAY ==
[2025-02-28 21:54] LABS: Microalb ug/mg Crea 112.7 ug/mg Cr
[2025-02-28 21:55] LABS: C & S Indicated? No; WBC Negative HPF (0-5)
== END 2025-02-28 15:46 | disposition home or self-care (01) ==
LOC: NCHCN 15:45
PROVIDERS: PCP Nurse Practitioner Family; Visit Provider Nurse Practitioner Family
DX: R31.29 Other microscopic hematuria (principal); R80.9 Proteinuria, unspecified
CPT/HCPCS: 81015; 82043; 82570

== ENCOUNTER 2025-03-20 12:31 | Outpatient (CLI) | payer MEDICARE, OTHER, SELFPAY ==
--- NOTE | 2025-03-20 06:00 | DI.RAD_ITS ---
Exam(s) XR PAIN CLINIC LUMBAR SP 2V EXAM: XR PAIN CLINIC LUMBAR SP 2V CLINICAL HISTORY: DX: Lumbar Radiculopathy. TECHNIQUE: Fluoroscopy was provided for the referring physician for guidance with performing pain clinic injection procedure. COMPARISON: No exams were available for comparison FINDINGS: Please see procedure note for details. Fluoro time: 33.1 seconds RADIATION DOSE DELIVERED: Kar=12.96 mGy
[2025-03-20 12:23] VITALS: BP 160/83; PULSE 90; RESP 18; TEMP 37; O2SAT 97
--- NOTE | 2025-03-20 12:56 | PDOC.PAIN ---
Date of service: 03/20/25 Time of Service: 13:26 Pain Managment Procedure Note Procedure Note Procedure Note: Lumbar Transforaminal Epidural Steroid Injection ? Location: BILATERAL L4 ? Pre-procedure Diagnosis: M54.17-Radiculopathy, lumbosacral region M54.16 Radiculopathy, lumbar region ? Post-procedure Diagnosis:? The same as above ? Sedation:? none ? Estimated blood loss:? less than 2 cc ? Surgeon:? Robert Crane MD COMMENT: Patient has severe spinal stenosis with neurogenic claudication. He had 1 lumbar L5-S1 epidural steroid injection which did not help. He saw Dr. Leodan Martinez at who offered him an L4-5 laminectomy and fusion. I think is reasonable to try 1 more procedure. ? Procedure Detail:?? The procedure and potential risks were explained to the patient and informed written consent was obtained. The patient was escorted to the procedure room and placed in the prone position. Pillows were utilized for proper positioning and comfort. Time out was performed in the procedure room with nursing staff confirming the patient's identity, procedure to be performed, allergies, and any blood thinning or anti-platelet medications. The patient's lower back was prepped with ChloraPrep and draped in a sterile fashion. Sterile gloves were used, a face mask was worn, and new single dose vials of all medications were used with the top being swabbed with alcohol and given time to dry prior to withdrawal of medication. A right-sided oblique fluoroscopic view was obtained, with visualization of L4-5. Lidocaine 1% was used to anesthetize the skin. The tip of a 22-gauge, Quincke needle was advanced toward the 6 o'clock position of the superior pedicle at the target level.? It was advanced just under the pedicle to the neural foramen L4-5. Correct needle placement was confirmed through review of the fluoroscopy. Next, following negative aspiration, 1cc's of Omnipaque 240 contrast was injected under live fluoroscopy which showed good flow throughout the epidural space and no evidence of vascular flow or flow into adjacent compartments. Next, following negative aspiration, 15mg of preservative-free dexamethasone [40mg Depo-Medrol] and 0.5ml of 0.5% bupivacaine was injected. The needle was gently removed.? The procedure was also performed in the same fashion at Left L4.? The patient tolerated the procedure well and was discharged home with instructions.? Permanent images saved and recorded. Plan:? Follow up prn PAIN: PRE PROCEDURE 05/28 POST PROCEDURE 05/28 COMMENT: If he does not get long-lasting relief then we will recommend he return to Dr. Martinez. Coding Conscious Sedation used for procedure: No CPT Codes: Transforaminal Lumbar/Sacral (includes fluoro) *BILATERAL* - [id number] ([id number]~G5) 50 - BILATERAL PROCEDURE Additional Codes: Date of Service () Diagnoses: M54.17-Radiculopathy, lumbosacral region M54.16 Radiculopathy, lumbar region
[2025-03-20 13:07] VITALS: PULSE 91; O2SAT 97
[2025-03-20 13:10] VITALS: PULSE 95; O2SAT 98
[2025-03-20 13:20] VITALS: PULSE 85; O2SAT 96
[2025-03-20] MEDS: methylPREDNISolone ACETATE 40 MG/ML VIAL IJ (13:28)
[2025-03-20] MEDS: Bupivacaine 0.5% Pres-Free 10 ML VIAL IJ (13:28)
[2025-03-20] MEDS: Nerve Block Tray 1 EACH MC (13:28)
[2025-03-20] MEDS: Omnipaque 240 MG/ML 50 ML BTL IJ (13:29)
== END 2025-03-20 12:32 | disposition home or self-care (01) ==
LOC: PC 12:32
PROVIDERS: PCP Nurse Practitioner Family; Visit Provider Anesthesiology Pain Medicine
DX: M54.50 Low back pain, unspecified (principal); M54.16 Radiculopathy, lumbar region; M54.17 Radiculopathy, lumbosacral region
CPT/HCPCS: 64483; 72100; J0665; J1010; Q9967